=== PATIENT | female | born 1940 | race Hispanic/Latino ===

== ENCOUNTER 2020-10-31 00:19 | Emergency (ER) | payer MEDICARE ==
--- NOTE | 2020-10-31 00:50 | Emergency Department Report ---
ED Chest Pain HPI - General Chief Complaint: Chest Pain Stated Complaint: CHEST PAIN FROM FALL Time Seen by Provider: 10/31/20 00:30 Source: patient, EMS Mode of arrival: Stretcher Limitations: No Limitations - History of Present Illness Initial Comments: Chief complaint: "I am not having angina. I have pain when I move or talk. My heart skipping beats." HPI: This is a 80-year-old female with history of hypertension, prediabetes, angina who presents with chest pressure for 1 week. She noticed chest pressure after falling. Pain is persistent worse with movement, coughing or palpation. En route to the hospital she has had palpitations. She denies fever, cough, shortness of breath, abdominal pain, vomiting. She does not take any medications. She does have a primary physician. MD Complaint: chest pain -: Gradual, week(s) (1 week ago) Onset: during rest Pain Location: left chest Pain Radiation: none Severity: mild Quality: pressure Consistency: constant Improves With: nothing Worsens With: palpation, movement Treatments Prior to Arrival: other (EMS transfer) - Related Data Previous Rx's Medication Instructions Recorded Last Taken Type HYDROcodone/APAP 5-325 [[place] 1 each PO Q6H PRN #10 tablet 10/31/20 Unknown Rx 5/325] Ibuprofen [Motrin 400 MG tab] 400 mg PO Q8H PRN #10 tablet 10/31/20 Unknown Rx Valsartan [Diovan] 80 mg PO DAILY #90 tablet 10/31/20 Unknown Rx Allergies Allergy/AdvReac Type Severity Reaction Status Date / Time Unable to Assess Allergy Verified 10/31/20 01:05 Heart Score - HEART Score History: Slightly suspicious EKG: Non-specific Age: > 65 Risk factors: No known risk factors Troponin: < normal limit HEART Score: 3 - EKG Read Time Time EKG Completed: : EKG Read Time: :22 ED Review of Systems ROS: Stated complaint: CHEST PAIN FROM FALL Other details as noted in HPI Comment: All other systems reviewed and negative Constitutional: denies: fever, malaise Respiratory: denies: cough, shortness of breath Cardiovascular: chest pain, palpitations Gastrointestinal: denies: abdominal pain, nausea, vomiting ED Past Medical Hx - Past Medical History Previous Medical History?: Yes Hx Hypertension: Yes Hx Diabetes: Yes - Surgical History Past Surgical History?: No - Social History Smoking Status: Never Smoker Substance Use Type: Alcohol - Medications Home Medications: Home Medications Medication Instructions Recorded Confirmed Last Taken Type HYDROcodone/APAP 5-325 [[place] 1 each PO Q6H PRN #10 tablet 10/31/20 Unknown Rx 5/325] Ibuprofen [Motrin 400 MG tab] 400 mg PO Q8H PRN #10 tablet 10/31/20 Unknown Rx Valsartan [Diovan] 80 mg PO DAILY #90 tablet 10/31/20 Unknown Rx ED Physical Exam - General Limitations: No Limitations General appearance: alert, in no apparent distress - Head Head exam: Present: atraumatic, normocephalic - Eye Eye exam: Present: normal appearance - ENT ENT exam: Present: mucous membranes moist - Neck Neck exam: Present: normal inspection, full ROM - Respiratory Respiratory exam: Present: normal lung sounds bilaterally. Absent: respiratory distress, wheezes, rales, rhonchi - Cardiovascular Cardiovascular Exam: Present: regular rate, normal rhythm, normal heart sounds. Absent: systolic murmur, diastolic murmur, rubs, gallop - GI/Abdominal GI/Abdominal exam: Present: soft, normal bowel sounds. Absent: distended, tenderness, guarding, rebound - Extremities Exam Extremities exam: Present: normal inspection - Neurological Exam Neurological exam: Present: alert, oriented X3 - Psychiatric Psychiatric exam: Present: normal affect, normal mood - Skin Skin exam: Present: warm, dry, intact, normal color. Absent: rash ED Course Vital Signs 10/31/20 00:30 Temperature 98.3 F Pulse Rate 74 Respiratory 15 Rate Blood Pressure 190/80 [Left] O2 Sat by Pulse 95 Oximetry ED Medical Decision Making - Lab Data Result diagrams: 10/31/20 00:38 10/31/20 00:38 - EKG Data -: EKG Interpreted by De EKG shows normal: sinus rhythm, axis Rate: normal - EKG Data Interpretation: nonspecific ST-T wave amita, LVH 10/31/20 01:34 EKG obtained 0122 Rate 70 bpm normal sinus rhythm normal axis normal intervals positive LVH with repolarization male no ST elevation - Radiology Data Patient: DOLORES BUENO MR#: [id number] : 1940 Acct:[id number] Age/Sex: 80 / F ADM Date: 10/31/20 Loc: ED Attending Dr: Ordering Physician: Regla Moreno MD Date of Service: 10/31/20 Procedure(s): XR ribs UNI w PA chest 3+V LT Accession Number(s): [id number] cc: Regla Thomason MD Fluoro Time In Minutes: . XR ribs UNI w PA chest 3+V LT INDICATION / CLINICAL INFORMATION: chest pain fall COMPARISON: None available. FINDINGS: SUPPORT DEVICES: None. HEART / MEDIASTINUM: No significant abnormality. LUNGS / PLEURA: Lungs are clear. Costophrenic sulci are sharp. No pneumothorax. RIBS: No acute rib fracture identified. IMPRESSION: 1. No acute rib fracture. Signer Name: Ariel Bynum MD Signed: 10/31/2020 1:26 AM Workstation Name: [id number] Transcribed By: RAMU Dictated By: Ariel Bynum MD Electronically Authenticated By: Ariel Bynum MD Signed Date/Time: 10/31/20125 DD/ 4 TD/TT: - Medical Decision Making 1. Musculoskeletal chest pain status post fall: no indication of ACS. No evidence of rib fracture. Patient given referral to party plan demonstrator and outpatient medicine physician. Referral request faxed to [facility]. Prescriptions ibuprofen [place] 2. Hypertensive urgency: Patient does not take any medication. Prescribed valsartan. Critical care attestation.: If time is entered above; I have spent that time in minutes in the direct care of this critically ill patient, excluding procedure time. ED Disposition Clinical Impression: Stable angina, Chest wall contusion, Hypertensive urgency Disposition: - TO HOME OR SELFCARE Is pt being admited?: No Does the pt Need Aspirin: No Condition: Stable Instructions: Angina, [id number], Rib Contusion, Managing Your Hypertension Prescriptions: Valsartan [Diovan] 80 mg PO DAILY #90 tablet Ibuprofen [Motrin 400 MG tab] 400 mg PO Q8H PRN #10 tablet PRN Reason: Pain , Severe (7-10) HYDROcodone/APAP 5-325 [[place] 5/325] 1 each PO Q6H PRN #10 tablet PRN Reason: Pain Referrals: CHELA PETER MD [Staff Physician] - 3-5 Days ITALIA GATES MD [Staff Physician] - 3-5 Days
[2020-10-31 01:02] LABS: Basophils % (Auto) 0.5 % (0.0-1.8); Eosinophils # (Auto) 0.3 K/mm3 (0.0-0.4); Eosinophils % (Auto) 2.9 % (0.0-4.3); Hematocrit 39.9 % (30.3-42.9); Hemoglobin 13.3 gm/dl (10.1-14.3); Lymphocytes % (Auto) 21.5 % (13.4-35.0); Mean Corpuscular HGB Conc 33 % (30-34); Mean Corpuscular Volume 90 fl (79-97); Monocytes # (Auto) 0.9 K/mm3 (0.0-0.8); Monocytes % (Auto) 9.9 % (0.0-7.3); Platelet Count 371 K/mm3 (140-440); Red Blood Count 4.45 M/mm3 (3.65-5.03); Red Cell Distribution Width 14.3 % (13.2-15.2)
[2020-10-31 01:20] LABS: BUN/Creatinine Ratio 27; Blood Urea Nitrogen 16 mg/dL (7-17); Calcium 8.5 mg/dL (8.4-10.2); Hemolysis Index 3
--- NOTE | 2020-10-31 01:31 | XRay Report ---
. XR ribs UNI w PA chest 3+V LT INDICATION / CLINICAL INFORMATION: chest pain fall COMPARISON: None available. FINDINGS: SUPPORT DEVICES: None. HEART / MEDIASTINUM: No significant abnormality. LUNGS / PLEURA: Lungs are clear. Costophrenic sulci are sharp. No pneumothorax. RIBS: No acute rib fracture identified. IMPRESSION: 1. No acute rib fracture. Signer Name: Ariel Bynum MD Signed: 10/31/2020 1:26 AM Workstation Name: [id number]
[2020-10-31] MEDS ORDERED: HYDROcodone/ACETAMINOPHEN 5-325 MG TAB PO ONE (01:43)
[2020-10-31] MEDS ORDERED: IBUPROFEN 800 MG TAB PO ONE (01:43)
[2020-10-31 05:57] VITALS: BP 163/65
--- NOTE | 2020-10-31 18:04 | Electrocardiograph Report ---
[facility] Test Date: 2020-10-31 Test Time: 01:22:23 Pat Name: DOLORES BUENO Department: Room: Gender: F Telegrapher Agent: ABIGAIL : 1940 Requested By: SYMONE CANTU Order Number: [id number] Reading MD: Jj Avila Measurements Intervals [place] Rate: 70 P: -1 MD: 136 QRS: 1 QRSD: 97 T: 166 QT: 376 QTc: 407 Interpretive Statements Sinus rhythm Probable LVH with secondary repol abnrm Anterior Q waves, possibly due to LVH No previous ECG available for comparison Electronically Signed On 10-31-2020 18:03:44 EDT by Jj Avila
== END 2020-10-31 07:15 | disposition home or self-care (01) ==
LOC: ED 00:19
DX: S20.219A Contusion of unspecified front wall of thorax, initial encounter (principal); I20.8 Other forms of angina pectoris; I16.0 Hypertensive urgency; E11.9 Type 2 diabetes mellitus without complications; Z79.1 Long term (current) use of non-steroidal anti-inflammatories (NSAID); Z79.899 Other long term (current) drug therapy; X58.XXXA Exposure to other specified factors, initial encounter; Y93.89 Activity, other specified; Y92.89 Other specified places as the place of occurrence of the external cause; Y99.8 Other external cause status
CPT/HCPCS: 36415; 80048; 83880; 84484; 85025; 93005

== ENCOUNTER 2021-01-04 12:17 | Inpatient (IN) | payer MEDICARE ==
[2021-01-04] MEDS ORDERED: IPRATROPIUM 0.02% NEBU 2.5 ML IH ONE (12:47)
[2021-01-04] MEDS ORDERED: ALBUTEROL 2.5 MG/3 ML NEBU IH ONE (12:47)
[2021-01-04] MEDS ORDERED: SODIUM CHLORIDE 0.9% 500 ML 500 ML IV ONE (12:50)
--- NOTE | 2021-01-04 12:54 | Emergency Department Report ---
HPI - General Chief Complaint: Dyspnea/Respdistress Time Seen by Provider: 01/04/21 12:31 - HPI HPI: Room 20 The patient is a 80-year-old female present with a chief complaint of shortness of breath. Patient states she developed shortness of breath last night. Patient denies chest pain fever or cough. The patient states she was diagnosed with a DVT in her groin approximately 1 month ago but stopped taking her Eliquis because of the side effects. Patient states she has not received vaccination against Covid. Patient also complains of abdominal pain x2 days ED Past Medical Hx - Past Medical History Previous Medical History?: Yes Hx Hypertension: Yes Hx Congestive Heart Failure: Yes Hx Diabetes: Yes Hx Deep Vein Thrombosis: Yes Hx COPD: Yes - Surgical History Past Surgical History?: No - Family History Family history: no significant - Social History Smoking Status: Former Smoker Substance Use Type: None - Medications Home Medications: Home Medications Medication Instructions Recorded Confirmed Last Taken Type HYDROcodone/APAP 5-325 [[place] 1 each PO Q6H PRN #10 tablet 10/31/20 Unknown Rx 5/325] Ibuprofen [Motrin 400 MG tab] 400 mg PO Q8H PRN #10 tablet 10/31/20 Unknown Rx Valsartan [Diovan] 80 mg PO DAILY #90 tablet 10/31/20 Unknown Rx ED Review of Systems ROS: Stated complaint: EVGENY Other details as noted in HPI Constitutional: denies: fever Eyes: denies: eye pain ENT: denies: throat pain Respiratory: shortness of breath. denies: cough Cardiovascular: denies: chest pain Endocrine: no symptoms reported Gastrointestinal: denies: abdominal pain Musculoskeletal: denies: back pain Neurological: denies: headache Physical Exam - Physical Exam Vital Signs: Vital Signs 01/04/21 12:37 Pulse Rate 113 H Respiratory 26 H Rate Blood Pressure 92/68 O2 Sat by Pulse 94 Oximetry Physical Exam: GENERAL: The patient is well-developed well-nourished female lying on stretcher appearing fatigued. [] HEENT: Normocephalic. Atraumatic. Extraocular motions are intact. Patient has moist mucous membranes. NECK: Supple. Trachea midline CHEST/LUNGS: Increased work of breathing. No wheezing auscultated. There is no respiratory distress noted. HEART/CARDIOVASCULAR: Regular. There is no tachycardia. There is no gallop rub or murmur. ABDOMEN: Abdomen is soft, with diffuse tenderness to palpation. Patient has normal bowel sounds. There is no abdominal distention. SKIN: There is no rash. There is trace bilateral lower extremity pitting edema. There is no diaphoresis. NEURO: The patient is awake, alert, and oriented. The patient is cooperative. The patient has no focal neurologic deficits. The patient has normal speech MUSCULOSKELETAL: There is no evidence of acute injury. ED Course Vital Signs 01/04/21 12:37 Pulse Rate 113 H Respiratory 26 H Rate Blood Pressure 92/68 O2 Sat by Pulse 94 Oximetry - Consultations Consultation #1: 01/04/21 13:12 Surgery paged 01/04/21 13:[address] Sweet ED Medical Decision Making - Lab Data Result diagrams: 01/04/21 12:57 01/04/21 12:57 Laboratory Tests 01/04/21 01/04/21 01/04/21 12:57 12:57 12:57 WBC 16.5 H RBC 5.01 Hgb 14.8 H Hct 45.2 H MCV 90 MCH 30 MCHC 33 RDW 14.8 Plt Count 521 H Seg Neutrophils % Food Processing Scientist PT 16.0 H INR 1.22 H APTT 32.6 D-Dimer 2114.69 H Sodium 116 L* Potassium 4.1 Chloride 78.9 L Carbon Dioxide 14 L Anion Gap 28 BUN 43 H Creatinine 1.6 H Estimated GFR 31 BUN/Creatinine Ratio 27 Glucose 397 H Calcium 9.2 Total Creatine Kinase CK-MB (CK-2) CK-MB (CK-2) Rel Index Troponin T NT-Pro-B Natriuret Pep 01/04/21 01/04/21 12:57 12:57 WBC RBC Hgb Hct MCV MCH MCHC RDW Plt Count Seg Neutrophils % PT INR APTT D-Dimer Sodium Potassium Chloride Carbon Dioxide Anion Gap BUN Creatinine Estimated GFR BUN/Creatinine Ratio Glucose Calcium Total Creatine Kinase 160 H CK-MB (CK-2) 4.3 H CK-MB (CK-2) Rel Index 2.6 Troponin T 0.019 NT-Pro-B Natriuret Pep 7015 H - Radiology Data Radiology results: report reviewed (Chest x-ray, CT abdomen pelvis), image reviewed (Chest x-ray, CT abdomen pelvis) interpreted by me: Chest x-ray-free air under the right hemidiaphragm visualized. No focal infiltrates, no pneumothorax [facility] [address] [place] [address] Cat Scan Report Signed Patient: DOLORES BUENO MR#: [id number] : 1940 Acct:[id number] Age/Sex: 80 / F ADM Date: 01/04/21 Loc: ED Attending Dr: Ordering Physician: ANGELA US MD Date of Service: 01/04/21 Procedure(s): CT abdomen pelvis w con Accession Number(s): [id number] cc: ANGELA SUMMERS MD CT ABDOMEN AND PELVIS WITH CONTRAST HISTORY: Diffuse pain. Free air seen on chest x-ray DR. US-- wanted scan done before labs came back. OMNI 300 100ML . COMPARISON: Chest x-ray from earlier today TECHNIQUE: CT images of the abdomen and pelvis were obtained following administration of intravenous contrast. All CT scans at this location are performed using CT dose reduction for ALARA by means of automated exposure control. CONTRAST: 100 ml of intravenous contrast administered. FINDINGS: Lungs/bones: There is mild bibasilar atelectasis. Otherwise clear lungs. Degenerative changes are present throughout the spine and pelvis with nothing acute. Abdomen/pelvis: There is moderate generalized soft tissue swelling along the stomach extending to the duodenal bulb with abnormal mucosal enhancement and fluid-filled appearance. There appears to be a small defect in the region of the distal antrum/duodenal bulb (for example see images 93-95 of series #2). There is moderate volume pneumoperitoneum and trace ascites associated with this finding. The more distal small bowel is dilated and fluid-filled and there are segments of gross abnormal enhancement, as well. The liver, gallbladder, spleen, pancreas, kidneys, and right adrenal gland appear unremarkable. There is mild left adrenal thickening. There is gas within the wall of the urinary bladder but there is no obvious bladder perforation or other abnormality. Reproductive organs are unremarkable. There are occasional colonic diverticula but no obvious laboratory change. IMPRESSION: 1. Bowel perforation likely from either the distal stomach or duodenal bulb with moderate volume pneumoperitoneum and trace ascites. 2. Abnormal appearance of the more distal small bowel is considerable wall thickening. If the patient is hypertensive, shock bowel could have this appearance. 3. Gas within the urinary bladder wall is most commonly seen with emphysematous cystitis. Correlate with history, UA, and exam findings. CRITICAL RESULT: Time of Discovery (CONCRETE MIXER OPERATOR/CDT): 1:18 pm Time of Communication (CONCRETE MIXER OPERATOR/CDT): 1:21 pm Licensed Practitioner Receiving Report: Dr. Us Read-Back Performed: Yes. === Signer Name: Adam Campuzano MD Signed: 01/04/2021 2:24 PM Workstation Name: [email or web address] Transcribed By: JW Dictated By: Adam Campuzano MD Electronically Authenticated By: Adam Campuzano MD Signed Date/Time: 01/04/211423 DD/ 14 TD/TT: Print Cancel [facility] [address] [place] [address] XRay Report Signed Patient: DOLORES BUENO MR#: [id number] : [birth year] Acct:[id number] Age/Sex: 80 / F ADM Date: 01/04/21 Loc: ED Attending Dr: Ordering Physician: ANGELA US MD Date of Service: 01/04/21 Procedure(s): XR chest 1V ap Accession Number(s): [id number] cc: ANGELA US MD Fluoro Time In Minutes: CHEST 1 VIEW 01/04/2021 1:00 PM INDICATION / CLINICAL INFORMATION: Chest pain. COMPARISON: 10/31/2020 FINDINGS: SUPPORT DEVICES: None. HEART / MEDIASTINUM: No significant abnormality. LUNGS / PLEURA: No significant pulmonary or pleural abnormality. No pneumothorax. ADDITIONAL FINDINGS: There is incidental note of intraperitoneal air. IMPRESSION: 1. Intraperitoneal air. CT of the abdomen and pelvis is recommended for further evaluation. CRITICAL RESULT Time of Discovery (CONCRETE MIXER OPERATOR/CDT): 1209 Time of Communication (CONCRETE MIXER OPERATOR/CDT): 1211 Licensed Practitioner Receiving Report: Dr. Us Read-Back Performed: Yes. ========= Signer Name: Mitch Crowley DO Signed: 01/04/2021 1:11 PM Workstation Name: [id number] Transcribed By: DILEEP Dictated By: MITCH CROWLEY DO Electronically Authenticated By: MITCH CROWLEY DO Signed Date/Time: 01/04/21 1311 DD/ 130 TD/TT: Print Cancel [facility] [address] [place] [address] Nuclear Medicine Report Signed Patient: DOLORES BUENO MR#: [id number] : 1940 Acct:[id number] Age/Sex: 80 / F ADM Date: 01/04/21 Loc: ED Attending Dr: Ordering Physician: ANGELA US MD Date of Service: 01/04/21 Procedure(s): NM perfusion only lung scan Accession Number(s): [id number] cc: ANGELA US MD NUCLEAR MEDICINE PERFUSION LUNG SCAN INDICATION / CLINICAL INFORMATION: Shortness of breath. TECHNIQUE: 5.1 mCi of Tc-99m MAA were given by IV. COMPARISON: Chest radiograph dated from earlier in the day. FINDINGS: PERFUSION: There is a perfusion defect noted involving the posterior lateral aspect of the left lung where there is a small left pleural effusion. ADDITIONAL FINDINGS: None. IMPRESSION: 1. Intermediate probability for pulmonary embolism. CT pulmonary angiogram may be beneficial for further evaluation. Signer Name: Mitch Crowley DO Signed: 01/04/2021 2:58 PM Workstation Name: [id number] Transcribed By: DILEEP Dictated By: MITCH CROWLEY DO Electronically Authenticated By: MITCH CROWLEY DO Signed Date/Time: 01/04/21 1458 DD/ 1453 TD/TT: Print Cancel - Differential Diagnosis PE, COPD exacerbation, pneumonia, COVID-19 Critical care attestation.: If time is entered above; I have spent that time in minutes in the direct care o f this critically ill patient, excluding procedure time. ED Disposition Clinical Impression: Bowel perforation, Hyponatremia Disposition: ADMITTED INPATIENT Is pt being admited?: Yes Does the pt Need Aspirin: No Condition: Serious Referrals: PRIMARY CARE, [Primary Care Provider] - 3-5 Days Time of Disposition: 15:18 (Hospitalist notified (Dr. Mcleod))
--- NOTE | 2021-01-04 13:15 | XRay Report ---
CHEST 1 VIEW 01/04/2021 1:00 PM INDICATION / CLINICAL INFORMATION: Chest pain. COMPARISON: 10/31/2020 FINDINGS: SUPPORT DEVICES: None. HEART / MEDIASTINUM: No significant abnormality. LUNGS / PLEURA: No significant pulmonary or pleural abnormality. No pneumothorax. ADDITIONAL FINDINGS: There is incidental note of intraperitoneal air. IMPRESSION: 1. Intraperitoneal air. CT of the abdomen and pelvis is recommended for further evaluation. CRITICAL RESULT Time of Discovery (SOUND ENGINEER AUDIO CONTROL/CDT): 1209 Time of Communication (SOUND ENGINEER AUDIO CONTROL/CDT): 1211 Licensed Practitioner Receiving Report: Dr. Saenz Read-Back Performed: Yes. Signer Name: Mitch Hendrix DO Signed: 01/04/2021 1:11 PM Workstation Name: [id number]
[2021-01-04 13:16] LABS: Hematocrit 45.2 % (30.3-42.9); Hemoglobin 14.8 gm/dl (10.1-14.3); Mean Corpuscular HGB Conc 33 % (30-34); Mean Corpuscular Volume 90 fl (79-97); Platelet Count 521 K/mm3 (140-440); Red Blood Count 5.01 M/mm3 (3.65-5.03); Red Cell Distribution Width 14.8 % (13.2-15.2)
[2021-01-04 13:41] LABS: Calcium 9.2 mg/dL (8.4-10.2); Creatine Kinase MB 4.3 ng/mL (0.0-4.0)
[2021-01-04] MEDS ORDERED: SODIUM CHLORIDE 0.9% 1000 ML 1,000 ML IV ONE ×2 (13:46→14:44)
[2021-01-04] MEDS ORDERED: PIPERACILLIN/TAZOBACTAM 3.375 3.375 GM/50 ML BAG IV ONE (14:05)
[2021-01-04 14:09] LABS: INR 1.22 (0.87-1.13)
[2021-01-04 14:10] LABS: Partial Thromboplastin Time 32.6 Sec. (24.2-36.6)
--- NOTE | 2021-01-04 14:28 | Cat Scan Report ---
CT ABDOMEN AND PELVIS WITH CONTRAST HISTORY: Diffuse pain. Free air seen on chest x-ray DR. SAENZ-- wanted scan done before labs came nelly k. OMNI 300 100ML . COMPARISON: Chest x-ray from earlier today TECHNIQUE: CT images of the abdomen and pelvis were obtained following administration of intravenous contrast. All CT scans at this location are performed using CT dose reduction for ALARA by means of automated exposure control. CONTRAST: 100 ml of intravenous contrast administered. FINDINGS: Lungs/bones: There is mild bibasilar atelectasis. Otherwise clear lungs. Degenerative changes are pr esent throughout the spine and pelvis with nothing acute. Abdomen/pelvis: There is moderate generalized soft tissue swelling along the stomach extending to th e duodenal bulb with abnormal mucosal enhancement and fluid-filled appearance. There appears to be a small defect in the region of the distal antrum/duodenal bulb (for example see images 93-95 of series #2). There is moderate volume pneumoperitoneum and trace ascites associated with this finding. The m ore distal small bowel is dilated and fluid-filled and there are segments of gross abnormal enhanceme nt, as well. The liver, gallbladder, spleen, pancreas, kidneys, and right adrenal gland appear unremarkable. There is mild left adrenal thickening. There is gas within the wall of the urinary bladder but there is no obvious bladder perforation or ot her abnormality. Reproductive organs are unremarkable. There are occasional colonic diverticula but n o obvious laboratory change. IMPRESSION: 1. Bowel perforation likely from either the distal stomach or duodenal bulb with moderate volume pneu moperitoneum and trace ascites. 2. Abnormal appearance of the more distal small bowel is considerable wall thickening. If the patient is hypertensive, shock bowel could have this appearance. 3. Gas within the urinary bladder wall is most commonly seen with emphysematous cystitis. Correlate w ith history, UA, and exam findings. CRITICAL RESULT: Time of Discovery (ABSORPTION AND ADSORPTION ENGINEER/CDT): 1:18 pm Time of Communication (ABSORPTION AND ADSORPTION ENGINEER/CDT): 1:21 pm Licensed Practitioner Receiving Report: Dr. Saenz Read-Back Performed: Yes. Signer Name: Adam Campuzano MD Signed: 01/04/2021 2:24 PM Workstation Name: [id number]
[2021-01-04] MEDS ORDERED: SODIUM CHLORIDE 0.9% 1000 ML 1,000 ML IV SCH (14:45)
--- NOTE | 2021-01-04 15:03 | Nuclear Medicine Report ---
NUCLEAR MEDICINE PERFUSION LUNG SCAN INDICATION / CLINICAL INFORMATION: Shortness of breath. TECHNIQUE: 5.1 mCi of Tc-99m MAA were given by IV. COMPARISON: Chest radiograph dated from earlier in the day. FINDINGS: PERFUSION: There is a perfusion defect noted involving the posterior lateral aspect of the left lung where there is a small left pleural effusion. ADDITIONAL FINDINGS: None. IMPRESSION: 1. Intermediate probability for pulmonary embolism. CT pulmonary angiogram may be beneficial for furt her evaluation. Signer Name: Mitch Hendrix DO Signed: 01/04/2021 2:58 PM Workstation Name: [email or web address]
--- NOTE | 2021-01-04 15:07 | Anesthesia Consultation ---
Anesthesia Consult and Med Hx Date of service: 01/04/21 - Airway Anesthetic Teeth Evaluation: Dentures (Upper) ROM Head & Neck: Adequate Mental/Hyoid Distance: Adequate Mallampati Class: Class II Intubation Access Assessment: Probably Good - Pulmonary Exam CTA: Yes - Cardiac Exam Cardiac Exam: RRR - Pre-Operative Health Status ASA Pre-Surgery Classification: ASA4, Emergency Proposed Anesthetic Plan: General - Pulmonary Hx Smoking: Yes (Quit >10 years ago) Hx Asthma: Yes (No meds) COPD: Yes Hx Sleep Apnea: Yes (No CPAP) - Cardiovascular System Hx Hypertension: Yes (CHF) Hx Angina: Yes (None within last few months) - Central Nervous System 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 Self discontinued Elliquis 10 days ago due to unwanted side effects.
[2021-01-04] MEDS ORDERED: LACTATED RINGERS 1,000 ML ONE (15:14)
--- NOTE | 2021-01-04 15:14 | Anesthesia Day of Surgery ---
Anesthesia Day of Surgery - Day of Surgery Patient Examined: Yes Patient H&P Reviewed: Yes Patient is NPO: Yes
[2021-01-04] MEDS ORDERED: fentaNYL 100 MCG/2 ML INJ ONE (15:16)
[2021-01-04] MEDS ORDERED: MIDAZOLAM 2 MG/2 ML INJ ONE (15:16)
[2021-01-04] MEDS ORDERED: propofoL 200 MG/20 ML VIAL IV ONE (15:16)
--- NOTE | 2021-01-04 15:32 | Consultation ---
History of Present Illness Consult date: 01/04/21 Reason for consult: abdominal pain Chief complaint: abd pain - History of present illness History of present illness: 80-year-old female with a past medical history of CHF, diabetes, peptic ulcer disease who presents to the emergency room with 3 days of worsening abdominal pain. She states that she came to the emergency room because she fell however she has been having abdominal pain specifically located in the epigastric area that radiates to the rest of her abdomen. The pain is spasm-like and severe. She has never had pain like this in the past. The patient states that she was diagnosed with peptic ulcer disease in the 1970s is and has not been taking any medication for this. She has been taking ibuprofen for pain. No fevers or chills, nausea, vomiting. She does complain of mild shortness of breath. No chest pain. She was recently diagnosed with a left lower extremity DVT for whic h she was started on Eliquis. The patient states that she has not taken Eliquis for the last 7 to 8 days. She also states that she has not urinated. Patient states that she moved here from [place] and has no family. She lives in a halfway. She does not take any medication for chronic medical issues and does not have a primary care physician. Work-up in the emergency room including a chest x-ray and CT of the abdomen pelvis revealed pneumoperitoneum. Surgery is consulted for evaluation. Past History Past Medical History: diabetes, GERD, heart failure Past Surgical History: No surgical history Social history: other (Lives in a halfway. No family.) Family history: no significant family history Medications and Allergies Allergies Allergy/AdvReac Type Severity Reaction Status Date / Time Unable to Assess Allergy Verified 10/31/20 01:05 Home Medications Medication Instructions Recorded Confirmed Last Taken Type HYDROcodone/APAP 5-325 [[place] 1 each PO Q6H PRN #10 tablet 10/31/20 Unknown Rx 5/325] Ibuprofen [Motrin 400 MG tab] 400 mg PO Q8H PRN #10 tablet 10/31/20 Unknown Rx Valsartan [Diovan] 80 mg PO DAILY #90 tablet 10/31/20 Unknown Rx Active Meds: Active Medications Sodium Chloride (Nacl 0.9% 1000 Ml) 1,000 mls @ 999 mls/hr IV BOLUS ONE Stop: 01/04/21 15:44 Sodium Chloride (Nacl 0.9% 1000 Ml) 1,000 mls @ 125 mls/hr IV DIRECT KISHOR Review of Systems All systems: negative (10 point ROS performed and negative except for that listed in HPI) Exam Vital Signs Pulse Resp BP Pulse Ox 123 H 23 92/68 92 01/04/21 12:35 01/04/21 12:35 01/04/21 12:35 01/04/21 12:35 Narrative exam: Gen.: Awake, alert, oriented x3. No apparent distress. Poor hygiene. ENT: Trachea midline. No lymphadenopathy. No scleral icterus or conjunctival pallor. Poor dentition. CV: S1, S2 present Respiratory: No audible wheezes Abdomen: Soft, mildly distended, diffuse tenderness to palpation. Positive rebound and guarding. No rigidity. Extremities: Bilateral lower extremity mild edema Results - Labs 01/04/21 12:57 01/04/21 12:57 Abnormal lab results 01/04/21 01/04/21 01/04/21 Range/Units 12:57 12:57 12:57 WBC 16.5 H (4.5-11.0) K/mm3 Hgb 14.8 H (10.1-14.3) gm/dl Hct 45.2 H (30.3-42.9) % Plt Count 521 H (140-440) K/mm3 PT 16.0 H (12.2-14.9) Sec. INR 1.22 H (0.87-1.13) D-Dimer 2114.69 H (0-234) ng/mlDDU Sodium 116 L* (137-145) mmol/L Chloride 78.9 L (98-107) mmol/L Carbon Dioxide 14 L (22-30) mmol/L BUN 43 H (7-17) mg/dL Creatinine 1.6 H (0.6-1.2) mg/dL Glucose 397 H (65-100) mg/dL Total Creatine Kinase (30-135) units/L CK-MB (CK-2) (0.0-4.0) ng/mL NT-Pro-B Natriuret Pep (0-900) pg/mL 01/04/21 Range/Units 12:57 WBC (4.5-11.0) K/mm3 Hgb (10.1-14.3) gm/dl Hct (30.3-42.9) % Plt Count (140-440) K/mm3 PT (12.2-14.9) Sec. INR (0.87-1.13) D-Dimer (0-234) ng/mlDDU Sodium (137-145) mmol/L Chloride (98-107) mmol/L Carbon Dioxide (22-30) mmol/L BUN (7-17) mg/dL Creatinine (0.6-1.2) mg/dL Glucose (65-100) mg/dL Total Creatine Kinase 160 H (30-135) units/L CK-MB (CK-2) 4.3 H (0.0-4.0) ng/mL NT-Pro-B Natriuret Pep 7015 H (0-900) pg/mL Diabetes panel 01/04/21 Range/Units 12:57 Sodium 116 L* (137-145) mmol/L Potassium 4.1 (3.6-5.0) mmol/L Chloride 78.9 L (98-107) mmol/L Carbon Dioxide 14 L (22-30) mmol/L BUN 43 H (7-17) mg/dL Creatinine 1.6 H (0.6-1.2) mg/dL Glucose 397 H (65-100) mg/dL Calcium 9.2 (8.4-10.2) mg/dL Calcium panel 01/04/21 Range/Units 12:57 Calcium 9.2 (8.4-10.2) mg/dL Pituitary panel 01/04/21 Range/Units 12:57 Sodium 116 L* (137-145) mmol/L Potassium 4.1 (3.6-5.0) mmol/L Chloride 78.9 L (98-107) mmol/L Carbon Dioxide 14 L (22-30) mmol/L BUN 43 H (7-17) mg/dL Creatinine 1.6 H (0.6-1.2) mg/dL Glucose 397 H (65-100) mg/dL Calcium 9.2 (8.4-10.2) mg/dL Adrenal panel 01/04/21 Range/Units 12:57 Sodium 116 L* (137-145) mmol/L Potassium 4.1 (3.6-5.0) mmol/L Chloride 78.9 L (98-107) mmol/L Carbon Dioxide 14 L (22-30) mmol/L BUN 43 H (7-17) mg/dL Creatinine 1.6 H (0.6-1.2) mg/dL Glucose 397 H (65-100) mg/dL Calcium 9.2 (8.4-10.2) mg/dL - Imaging Chest x-ray: report reviewed, image reviewed CT scan - abdomen: report reviewed, image reviewed CT scan - pelvis: report reviewed, image reviewed Assessment and Plan 80-year-old female with 1. pneumoperitoneum 2. sepsis 2/2 #1 Plan: Admit to hospitalist service 1. NPO, strict 2. aggressive IVF hydration 3. IV abx 4. insert mckinney for strict I/Os 5. recommend echo 6. type and screen stat 7. DVT ppx 8. prn pain control. NO NSAIDS 9. PPI gtt 10. blood and urine cx 11. CT and lab findings reviewed. Patient with pneumoperitoneum likely secondary to gastric/duo perf. Discussed this with patient in detail and explained recommendation for emergent surgery. All risks, benefits, alternatives to surgery discussed and questions answered. Explained to the patient that she is high risk for surgery especially with her current laboratory findings and poorly controlled chronic medical issues. She understands and is agreeable to surgery. Consent obtained for exploratory laparotomy, possible bowel or gastric resection, possible colostomy. Discussed with Dr. Saenz Thank you for this consultation. Please call with any questions or concerns. Evaluation and treatment of this patient was during the time of the national and state emergency arising from COVID19 coronavirus pandemic. Treatment and procedures performed meet the current and available best practice and guidelines for patient during the COVID pandemic.
[2021-01-04] MEDS ORDERED: ALBUTEROL 2.5 MG/3 ML NEBU IH PRN (15:35)
[2021-01-04] MEDS ORDERED: oxyCODONE /ACETAMINOPHEN 5-325MG TAB PO PRN (15:35)
[2021-01-04] MEDS ORDERED: ACETAMINOPHEN 325 MG TAB PO PRN (15:35)
[2021-01-04] MEDS ORDERED: HYDROmorphone 1 MG/1 ML INJ IV PRN ×2 (15:35→18:16)
[2021-01-04] MEDS ORDERED: metroNIDAZOLE/NS 500 MG/100 ML 500 MG/100 ML BAG IV NR ×2 (16:00→16:28)
[2021-01-04] MEDS ORDERED: SODIUM CHLORIDE 0.9% 1000 ML 1,000 ML ONE ×2 (16:05→17:07)
[2021-01-04] MEDS ORDERED: INSULIN LISPRO 100 UNIT/ML SUB-Q ONE ×2 (16:26→18:00)
[2021-01-04] MEDS ORDERED: metroNIDAZOLE/NS 500 MG/100 ML 500 MG/100 ML BAG IV ONE (16:30)
[2021-01-04 16:48] LABS: Band Neutrophils # (Manual) 5.8 K/mm3; Myelocytes # (Manual) 0.2 K/mm3; Total Cells Counted 100
[2021-01-04 16:49] LABS: Platelet Estimate Consistent w Auto
[2021-01-04] MEDS ORDERED: LIDOCAINE MPF (2%) 20 MG/1 ML VIAL 5 ML ONE (17:00)
[2021-01-04] MEDS ORDERED: NEOSTIGMINE 10MG/10 ML INJ MDV ONE (17:00)
[2021-01-04] MEDS ORDERED: GLYCOPYRROLATE 0.4 MG/2 ML INJ ONE (17:00)
[2021-01-04] MEDS ORDERED: PHENYLEPHRINE/NS 1,000 MCG/10 ML SYRINGE (OR USE) IV ONE (17:01)
[2021-01-04] MEDS ORDERED: SODIUM CHLORIDE 0.9% IRR 1,000 ML BOTTLE IR ONE (17:10)
[2021-01-04] MEDS ORDERED: ONDANSETRON 4 MG/2 ML INJ ONE (17:17)
--- NOTE | 2021-01-04 17:51 | Operative Report ---
Operative Report Operative Report: Date of surgery: 01/04/2021 Preoperative diagnosis: Pneumoperitoneum Postoperative diagnosis: Pneumoperitoneum, perforated gastric ulcer Procedure: Exploratory laparotomy, peritoneal lavage, omental patch repair of perforated gastric ulcer Surgeon: Roman Sweet DO Chief Wheelage Clerk surgeon: MD Jose G Anesthesia: GETA Findings: 1 cm perforation, anterior, prepyloric with gross contamination of the abdomen with gastric contents. -IV fluids: 1 L -Urine output: 350 cc -NG tube output: 400 cc EBL: 25 cc Specimen: Biopsy of gastric ulcer Complications: None Disposition: Stable to PACU HPI and indication: Patient is a 80-year-old female with a past medical history of diabetes, peptic ulcer disease, left lower extremity DVT diagnosed 1 month ago who presented to the emergency room status post fall. The patient complained of shortness of breath and during the work-up a chest x-ray revealed pneumoperitoneum. Follow-up CT scan of the abdomen and pelvis revealed pneumoperitoneum, likely perforated gastric ulcer. It was recommended that the patient undergo emergent exploratory laparotomy. All risks, benefits, alternatives to surgery were discussed with the patient questions answered. Consent was obtained. Procedure in detail: Patient was identified in the hospital bed, taken back to the operating room, placed on the operating room table in supine position. After anesthesia was induced a Espinoza catheter was sterilely placed by the circulating nurse. The abdomen was prepped and draped in usual sterile fashion and a timeout was performed. A midline incision was made from this xiphoid and carried out around the umbilicus using a 10 blade. Dissection was then carried out through the subcutaneous tissue using electrocautery until the fascia was encountered. The fascia was incised with the Bovie until the posterior fascia was encountered. This was grasped between 2 hemostats and tented upwards. This was entered using Metzenbaum scissors. Upon entering the abdomen there was immediate drainage of greenish intraperitoneal fluid. The remainder of the fascia was opened over 2 gloved fingers in a cephalad and caudad direction using electrocautery with great care to avoid injury to underlying structures. The falciform was also ligated using electrocautery. There was a copious amount of green fluid in the abdomen, more concentrated in the upper abdomen. We performed a systematic evaluation of the abdomen to determine what the source of pneumoperitoneum. Immediately visible on examination of the stomach was a 1 cm prepyloric perforation in the anterior stomach. The edges were clean with mild induration. A biopsy of the ulceration was obtained for specimen. We also examined the small bowel from the ligament of Treitz to the terminal ileum an the bowel appeared grossly normal, viable, without injury. The colon was also examined and was unremarkable. At this point it was decided to repair the perforation with an omental patch. 4 full-thickness interrupted 3-0 silk stitches were placed at the site of the perforation. These were tied down and the tails used to secure a tongue of omentum over the area of perforation. The repair was satisfactory. We then proceeded to perform peritoneal lavage with greater than 4 L of warm saline. Towards the end of the lavage all of the irrigant was returning clear. A 19 [place] Edmundo drain was placed through the right abdomen and positioned over the repair. This was sutured to the skin using a 2-0 nylon drain stitch. The N G tube was palpated and was in the distal body of the stomach. This was secured by anesthesia. At this point we decided to close the abdomen.The fascia was closed using a running looped #1 PDS stitch. The subcutaneous tissue was irrigated and hemostasis ensured. The skin was approximated using skin nikhil. The skin was cleansed and dried. A cover site dressing was applied to the midline incision. A 4 x 4 gauze was applied around the drain and secured with a Tegaderm. The patient was stable throughout the procedure. At the end of the procedure all sharps, instruments, sponge counts were correct x2. The patient was awoken from anesthesia, extubated, taken to PACU in stable condition.
[2021-01-04] MEDS ORDERED: ONDANSETRON 4 MG/2 ML INJ IV PRN ×2 (18:16→20:27)
[2021-01-04] MEDS: HYDROmorphone 1 MG/1 ML INJ IV PRN ×2 (18:20→18:30)
[2021-01-04] MEDS ORDERED: DEXTROSE 50% IN WATER (25GM) 50 ML SYRINGE IV PRN (18:47)
[2021-01-04 18:49] LABS: Hematocrit 33.3 % (30.3-42.9); Hemoglobin 11.2 gm/dl (10.1-14.3); Mean Corpuscular HGB Conc 34 % (30-34); Mean Corpuscular Volume 92 fl (79-97); Platelet Count 316 K/mm3 (140-440); Red Blood Count 3.64 M/mm3 (3.65-5.03); Red Cell Distribution Width 14.7 % (13.2-15.2)
[2021-01-04 18:59] LABS: Albumin 2.2 g/dL (3.9-5); Calcium 6.4 mg/dL (8.4-10.2)
[2021-01-04] MEDS: PANTOPRAZOLE 80 MG in SODIUM CHLORIDE 0.9% 100 ML IV SCH (19:09)
--- NOTE | 2021-01-04 19:11 | History and Physical Report ---
History of Present Illness Date of admission: 01/04/21 15:39 Chief complaint: Im short of breath and my stomach hurts History of present illness: 80 YO Female with HTN, CHF, DM, COPD, DVT noncompliant with therapeutic anticoagulation with Eliquis, Obesity presents to ED for evaluation. Patient reports "I get short of breath and my stomach has been hurting". Patient states that she experienced shortness of breath overnight. Patient also reports abdominal pain over the past 2 days. Patient states that pain is 5/10, constant, worsened with palpation. EMS was notified and upon arrival the patient was found to be in distress and subsequently transported to [facility] for further care and evaluation of the aforementioned symptoms. The patient was seen and evaluated in the emergency department. All lab and imaging studies reviewed. CT scan of the abdomen and pelvis revealed perforated viscus. Surgery team consulted. Patient is pending surgical intervention as per surgical team. VQ scan reviewed and immediate probability of pulmonary embolus. Patient resumed on prophylactic anticoagulation postoperatively. Patient denies fever, chills, chest pain, palpitations, skin rash, recent ill contacts, known exposure to COVID-19. Patient has not received coronavirus vaccination. Patient admitted to ICU for postoperative care and evaluation. Past History Past Medical History: diabetes, GERD, heart failure Past Surgical History: No surgical history Social history: other (Lives in a longterm. No family.) Family history: no significant family history Medications and Allergies Allergies Allergy/AdvReac Type Severity Reaction Status Date / Time Unable to Assess Allergy Verified 10/31/20 01:05 Home Medications Medication Instructions Recorded Confirmed Last Taken Type HYDROcodone/APAP 5-325 [[place] 1 each PO Q6H PRN #10 tablet 10/31/20 Unknown Rx 5/325] Ibuprofen [Motrin 400 MG tab] 400 mg PO Q8H PRN #10 tablet 10/31/20 Unknown Rx Valsartan [Diovan] 80 mg PO DAILY #90 tablet 10/31/20 Unknown Rx Active Meds: Active Medications Albuterol (Albuterol 2.5 Mg/3 Ml Nebu) 2.5 mg IH Q3HRT PRN PRN Reason: Shortness Of Breath Dextrose (Dextrose 50% In Water (25gm) 50 Ml Syringe) 50 ml IV Q30MIN PRN; Protocol PRN Reason: Hypoglycemia Heparin Sodium (Porcine) (Heparin 5,000 Unit/1 Ml Vial) 5,000 unit SUB-Q Q8HR KISHOR Hydromorphone HCl (Hydromorphone 1 Mg/1 Ml Inj) 0.5 mg IV Q12H PRN PRN Reason: Pain , Severe (7-10) Hydromorphone HCl (Hydromorphone 1 Mg/1 Ml Inj) 0.25 mg IV Q10MIN PRN PRN Reason: Pain, Moderate (4-6) Stop: 01/05/21 18:15 Hydromorphone HCl (Hydromorphone 1 Mg/1 Ml Inj) 0.5 mg IV Q10MIN PRN PRN Reason: Pain , Severe (7-10) Stop: 01/05/21 18:15 Last Admin: 01/04/21 18:30 Dose: 0.5 mg Documented by: Sodium Chloride (Nacl 0.9% 1000 Ml) 1,000 mls @ 125 mls/hr IV DIRECT KISHOR Pantoprazole Sodium 80 mg/ (Sodium Chloride) 100 mls @ 10 mls/hr IV DIRECT KISHOR Last Admin: 01/04/21 19:09 Dose: 8 mg/hr, 10 mls/hr Documented by: Metronidazole (Flagyl 500 Mg/100 Ml) 500 mg in 100 mls @ 200 mls/hr IV PREOP NR; Protocol Stop: 01/04/21 23:29 Fluconazole (Diflucan/Ns 100 Mg/50 Ml) 100 mg in 50 mls @ 50 mls/hr IV Q24H KISHOR; Protocol Metronidazole (Flagyl 500 Mg/100 Ml) 500 mg in 100 mls @ 100 mls/hr IV Q8H KISHOR; Protocol Levofloxacin/Dextrose (Levaquin 250mg/50ml) 250 mg in 50 mls @ 50 mls/hr IV Q24H KISHOR; Protocol Insulin Human Regular (Insulin Regular, Human 100 Units/1 Ml) 0 units SUB-Q ACHS KISHOR; Protocol Morphine Sulfate (Morphine 2 Mg/1 Ml Inj) 2 mg IV Q4H PRN PRN Reason: Pain, Moderate (4-6) Morphine Sulfate (Morphine 4 Mg/1 Ml Inj) 4 mg IV Q4H PRN PRN Reason: Pain , Severe (7-10) Ondansetron HCl (Ondansetron 4 Mg/2 Ml Inj) 4 mg IV ONCE PRN PRN Reason: Nausea And Vomiting Sodium Chloride (Sodium Chloride 0.9% 10 Ml Flush Syringe) 10 ml IV BID KISHOR Sodium Chloride (Sodium Chloride 0.9% 10 Ml Flush Syringe) 10 ml IV PRN PRN PRN Reason: LINE FLUSH Review of Systems Constitutional: no weight loss, no weight gain, no fever, no chills Ears, nose, mouth and throat: no ear pain, no ear discharge, no tinnitis, no nose pain, no sinus pressure Breasts: no change in shape, no mass Cardiovascular: no chest pain, no rapid/irregular heart beat Respiratory: shortness of breath Gastrointestinal: abdominal pain, no nausea, no vomiting, no diarrhea, no change in bowel habits, no melena, no loss of appetite, no heartburn Genitourinary Female: no pelvic pain, no flank pain, no dysuria, no urinary frequency, no urgency Rectal: no pain, no incontinence, no bleeding Musculoskeletal: no neck stiffness, no neck pain, no arm numbness/tingling, no low back pain, no shooting leg pain, no leg numbness/tingling Integumentary: no rash, no pruritis, no sores, no wounds, no jaundice Neurological: no head injury, no transient paralysis, no paralysis, no weakness, no parathesias, no tingling, no seizures, no syncope Psychiatric: no anxiety, no change in sleep habits, no insomnia, no hypersomnia, no suicidal ideation Endocrine: no cold intolerance, no polyphagia, no excessive thirst, no polydipsia, no nocturia Hematologic/Lymphatic: no easy bruising, no easy bleeding, no lymphadenopathy, no lymphedema Allergic/Immunologic: no urticaria, no anaphylaxis Exam - Constitutional Vitals: Temp Pulse Resp BP Pulse Ox 97.1 F L 76 24 125/69 94 01/04/21 18:45 01/04/21 18:45 01/04/21 18:45 01/04/21 18:45 01/04/21 18:45 General appearance: Present: mild distress, obese - EENT Eyes: Present: PERRL ENT: hearing intact, clear oral mucosa - Neck Neck: Present: supple, normal ROM - Respiratory Respiratory effort: normal Respiratory: bilateral: CTA - Cardiovascular Heart Sounds: Present: S1 & S2. Absent: rub, click - Extremities Extremities: pulses symmetrical, No edema Peripheral Pulses: within normal limits - Abdominal General gastrointestinal: Present: soft, tender, non-distended, normal bowel sounds Localized gastrointestinal: tender: RLQ, LLQ Female genitourinary: Present: normal - Integumentary Integumentary: Present: clear, warm, dry - Musculoskeletal Musculoskeletal: gait normal, strength equal bilaterally - Psychiatric Psychiatric: appropriate mood/affect, intact judgment & insight - Neurologic Neurologic: CNII-XII intact, moves all extremities HEART Score - HEART Score Troponin: Troponin T 0.019 ng/mL (0.00-0.029) 01/04/21 12:57 Results - Labs CBC & Chem 7: 01/04/21 18:33 01/04/21 18:33 Labs: Abnormal lab results 01/04/21 01/04/21 01/04/21 Range/Units 12:57 12:57 12:57 WBC 16.5 H (4.5-11.0) K/mm3 RBC (3.65-5.03) M/mm3 Hgb 14.8 H (10.1-14.3) gm/dl Hct 45.2 H (30.3-42.9) % Plt Count 521 H (140-440) K/mm3 Seg Neutrophils # Man 10.2 H (1.8-7.7) K/mm3 Lymphocytes # (Manual) 0.0 L (1.2-5.4) K/mm3 PT 16.0 H (12.2-14.9) Sec. INR 1.22 H (0.87-1.13) D-Dimer 2114.69 H (0-234) ng/mlDDU Sodium 116 L* (137-145) mmol/L Potassium (3.6-5.0) mmol/L Chloride 78.9 L (98-107) mmol/L Carbon Dioxide 14 L (22-30) mmol/L BUN 43 H (7-17) mg/dL Creatinine 1.6 H (0.6-1.2) mg/dL Glucose 397 H (65-100) mg/dL POC Glucose (70-105) mg/dL Calcium (8.4-10.2) mg/dL AST (5-40) units/L ALT (7-56) units/L Total Creatine Kinase (30-135) units/L CK-MB (CK-2) (0.0-4.0) ng/mL NT-Pro-B Natriuret Pep (0-900) pg/mL Total Protein (6.3-8.2) g/dL Albumin (3.9-5) g/dL 01/04/21 01/04/21 01/04/21 Range/Units 12:57 17:58 18:33 WBC 11.4 H (4.5-11.0) K/mm3 RBC 3.64 L (3.65-5.03) M/mm3 Hgb (10.1-14.3) gm/dl Hct (30.3-42.9) % Plt Count (140-440) K/mm3 Seg Neutrophils # Man (1.8-7.7) K/mm3 Lymphocytes # (Manual) (1.2-5.4) K/mm3 PT (12.2-14.9) Sec. INR (0.87-1.13) D-Dimer (0-234) ng/mlDDU Sodium (137-145) mmol/L Potassium (3.6-5.0) mmol/L Chloride (98-107) mmol/L Carbon Dioxide (22-30) mmol/L BUN (7-17) mg/dL Creatinine (0.6-1.2) mg/dL Glucose (65-100) mg/dL POC Glucose 245 H (70-105) mg/dL Calcium (8.4-10.2) mg/dL AST (5-40) units/L ALT (7-56) units/L Total Creatine Kinase 160 H (30-135) units/L CK-MB (CK-2) 4.3 H (0.0-4.0) ng/mL NT-Pro-B Natriuret Pep 7015 H (0-900) pg/mL Total Protein (6.3-8.2) g/dL Albumin (3.9-5) g/dL 01/04/21 01/04/21 Range/Units 18:33 18:42 WBC (4.5-11.0) K/mm3 RBC (3.65-5.03) M/mm3 Hgb (10.1-14.3) gm/dl Hct (30.3-42.9) % Plt Count (140-440) K/mm3 Seg Neutrophils # Man (1.8-7.7) K/mm3 Lymphocytes # (Manual) (1.2-5.4) K/mm3 PT (12.2-14.9) Sec. INR (0.87-1.13) D-Dimer (0-234) ng/mlDDU Sodium 125 L D (137-145) mmol/L Potassium 3.2 L D (3.6-5.0) mmol/L Chloride 93.8 L (98-107) mmol/L Carbon Dioxide 19 L (22-30) mmol/L BUN 34 H (7-17) mg/dL Creatinine (0.6-1.2) mg/dL Glucose 205 H (65-100) mg/dL POC Glucose 209 H (70-105) mg/dL Calcium 6.4 L D (8.4-10.2) mg/dL AST 138 H (5-40) units/L ALT 311 H (7-56) units/L Total Creatine Kinase (30-135) units/L CK-MB (CK-2) (0.0-4.0) ng/mL NT-Pro-B Natriuret Pep (0-900) pg/mL Total Protein 4.7 L (6.3-8.2) g/dL Albumin 2.2 L (3.9-5) g/dL Assessment and Plan - Patient Problems (1) Bowel perforation Current Visit: Yes Status: Acute Plan to address problem: CT scan abdomen and pelvis, bowel rest, surgery team consulted, IV antibiotic therapy, pain control, supportive care. Surgical intervention as per surgical team (2) SIRS (systemic inflammatory response syndrome) Current Visit: Yes Status: Acute Plan to address problem: CBC, CMP, chest x-ray, IV antibiotic therapy, supportive care. (3) Acidosis Current Visit: Yes Status: Acute Plan to address problem: IV fluid resuscitation therapy, repeat BMP in a.m. (4) History of DVT (deep vein thrombosis) Current Visit: Yes Status: Acute Plan to address problem: Patient noncompliant with outpatient therapeutic anticoagulation. Will resume prophylactic anticoagulation postoperatively. Follow-up with surgical team in a.m. and potentially restart therapeutic anticoagulation in a.m. (5) Hyponatremia Current Visit: Yes Status: Acute Plan to address problem: IV fluid resuscitation therapy, BMP, repeat BMP in a.m. (6) DVT prophylaxis Current Visit: Yes Status: Acute Plan to address problem: SCD bilateral lower extremities while in bed, prophylactic anticoagulation (7) Advance care planning Current Visit: Yes Status: Acute Plan to address problem: Disease education conducted, care plan discussed, diagnosis discussed, prognosis discussed, patient knowledges understanding and agree with care plan, +30 minutes.
--- NOTE | 2021-01-04 19:11 | Post Anesthesia Evaluation ---
- Post Anesthesia Evaluation Patient Participated: Yes Airway Patent: Yes Stable Respiratory Function: Yes Nausea/Vomiting: No Temp > 96.8F: Yes Pain Manageable: Yes Adequeate Hydration: Yes Anesthesia Complications: No Block Receding Appropriately: Not Applicable Patient on Ventilator: No
[2021-01-04] MEDS: FLUCONAZOLE/NS 100 MG/50 ML 100 MG/50 ML BAG IV SCH (19:14)
[2021-01-04] MEDS ORDERED: MORPHINE 4 MG/1 ML INJ IV PRN (20:27)
[2021-01-04] MEDS ORDERED: MORPHINE 2 MG/1 ML INJ IV PRN (20:27)
[2021-01-04] MEDS ORDERED: HEPARIN 5,000 UNIT/1 ML VIAL SUB-Q SCH (22:00)
[2021-01-04] MEDS: POTASSIUM CHLORIDE 10 MEQ 10 MEQ/100 ML BAG IV SCH (23:24)
[2021-01-04] MEDS: INSULIN REGULAR, HUMAN 100 UNITS/1 ML SUB-Q SCH (23:25)
[2021-01-04] MEDS: MORPHINE 2 MG/1 ML INJ IV PRN (23:27)
[2021-01-05] MEDS: POTASSIUM CHLORIDE 10 MEQ 10 MEQ/100 ML BAG IV SCH ×3 (00:16→03:30)
[2021-01-05] MEDS: metroNIDAZOLE/NS 500 MG/100 ML 500 MG/100 ML BAG IV SCH ×3 (01:55→16:48)
[2021-01-05] MEDS: MORPHINE 2 MG/1 ML INJ IV PRN ×4 (05:13→20:16)
[2021-01-05] MEDS: PANTOPRAZOLE 80 MG in SODIUM CHLORIDE 0.9% 100 ML IV SCH ×2 (05:34→15:40)
[2021-01-05] MEDS: INSULIN REGULAR, HUMAN 100 UNITS/1 ML SUB-Q SCH ×3 (08:04→21:16)
[2021-01-05] MEDS ORDERED: CALCIUM CHLORIDE 1,000 MG in SODIUM CHLORIDE 0.9% 100 ML IV ONE (11:30)
[2021-01-05] MEDS ORDERED: POTASSIUM CHLORIDE 10 MEQ 10 MEQ/100 ML BAG IV SCH (11:30)
[2021-01-05 13:43] LABS: Hematocrit 39.3 % (30.3-42.9); Hemoglobin 13.1 gm/dl (10.1-14.3); Mean Corpuscular HGB Conc 33 % (30-34); Mean Corpuscular Volume 94 fl (79-97); Platelet Count 355 K/mm3 (140-440); Red Blood Count 4.18 M/mm3 (3.65-5.03); Red Cell Distribution Width 15.5 % (13.2-15.2)
[2021-01-05 14:01] LABS: BUN/Creatinine Ratio 41; Blood Urea Nitrogen 37 mg/dL (7-17); Calcium 7.6 mg/dL (8.4-10.2); Hemolysis Index 53
--- NOTE | 2021-01-05 14:10 | Progress Note ---
Assessment and Plan 80-year-old female s/p Exploratory laparotomy, peritoneal lavage, omental patch repair of perforated gastric ulcer, POD1 1. pneumoperitoneum 2/2 perforated gastric ulcer 2. sepsis 2/2 #1 Plan: 1. NPO, ok for 1/2 cup ice chips per shift only 2. IVF hydration - change to D5NS@100cc/hr 3. IV abx - levaquin, flagyl, diflucan 4. continue mckinney for strict I/Os 5. DVT ppx 6. prn pain control. NO NSAIDS 7. PPI gtt -> will switch to protonix 40mg IV BID tomorrow 8. blood and urine cx 9. path from ulcer bx pending 10. IS/pulm toilet 11. continue NGT to LIWS - SHOULD NOT BE MANIPULATED, FLUSHED, USED FOR MEDS, OR REMOVED WITHOUT ORDER FROM SURGEON. 12. PT on board - will follow recs for dc dispo 13. Kian drain - continue recording output q shift and keep to bulb suction 14. daily labs - monitor sodium Thank you. Please call with any questions or concerns. Evaluation and treatment of this patient was during the time of the national and state emergency arising from COVID19 coronavirus pandemic. Treatment and procedures performed meet the current and available best practice and guidelines for patient during the COVID pandemic. Subjective Date of service: 01/05/21 Narrative: Pt seen and examined. No acute complaints. Afebrile. Walked with PT today. Objective Vital Signs - 12hr 01/05/21 01/05/21 04:12 10:47 Temperature 98.0 F Pulse Rate 90 Respiratory 22 Rate Blood Pressure 182/86 O2 Sat by Pulse 95 96 Oximetry - General physical appearance Narrative Exam: Gen.: Awake, alert, oriented x3. No apparent distress. ENT: NGT with dark bilious drainage CV: S1, S2 present Respiratory: No audible wheezes Abdomen: Soft, ND, TTP near midline incision - appropriate. Dressings are c/d/i. KIAN drain serous. Extremities: Bilateral lower extremity mild edema : mckinney with yellow urine - Labs 01/05/21 12:45 01/05/21 12:45 Diabetes panel 01/04/21 01/05/21 Range/Units 18:33 12:45 Sodium 125 L D 126 L (137-145) mmol/L Potassium 3.2 L D 5.2 H D (3.6-5.0) mmol/L Chloride 93.8 L 93.8 L (98-107) mmol/L Carbon Dioxide 19 L 21 L (22-30) mmol/L BUN 34 H 37 H (7-17) mg/dL Creatinine 1.1 0.9 (0.6-1.2) mg/dL Glucose 205 H 145 H (65-100) mg/dL Calcium 6.4 L D 7.6 L D (8.4-10.2) mg/dL AST 138 H (5-40) units/L ALT 311 H (7-56) units/L Alkaline Phosphatase 40 (35-129) units/L Total Protein 4.7 L (6.3-8.2) g/dL Albumin 2.2 L (3.9-5) g/dL Calcium panel 01/04/21 01/05/21 Range/Units 18:33 12:45 Calcium 6.4 L D 7.6 L D (8.4-10.2) mg/dL Phosphorus 3.20 (2.5-4.5) mg/dL Albumin 2.2 L (3.9-5) g/dL Pituitary panel 01/04/21 01/05/21 Range/Units 18:33 12:45 Sodium 125 L D 126 L (137-145) mmol/L Potassium 3.2 L D 5.2 H D (3.6-5.0) mmol/L Chloride 93.8 L 93.8 L (98-107) mmol/L Carbon Dioxide 19 L 21 L (22-30) mmol/L BUN 34 H 37 H (7-17) mg/dL Creatinine 1.1 0.9 (0.6-1.2) mg/dL Glucose 205 H 145 H (65-100) mg/dL Calcium 6.4 L D 7.6 L D (8.4-10.2) mg/dL Adrenal panel 01/04/21 01/05/21 Range/Units 18:33 12:45 Sodium 125 L D 126 L (137-145) mmol/L Potassium 3.2 L D 5.2 H D (3.6-5.0) mmol/L Chloride 93.8 L 93.8 L (98-107) mmol/L Carbon Dioxide 19 L 21 L (22-30) mmol/L BUN 34 H 37 H (7-17) mg/dL Creatinine 1.1 0.9 (0.6-1.2) mg/dL Glucose 205 H 145 H (65-100) mg/dL Calcium 6.4 L D 7.6 L D (8.4-10.2) mg/dL Total Bilirubin 0.30 (0.1-1.2) mg/dL AST 138 H (5-40) units/L ALT 311 H (7-56) units/L Alkaline Phosphatase 40 (35-129) units/L Total Protein 4.7 L (6.3-8.2) g/dL Albumin 2.2 L (3.9-5) g/dL
[2021-01-05] MEDS: D5W/0.9% NACL 1,000 ML IV SCH (14:18)
--- NOTE | 2021-01-05 14:25 | Progress Note ---
Assessment and Plan #1 perforated bowel.-Status post surgical intervention. Doing well. Pain controlled. -Continue supportive care -Pain control -Correct electrolytes -Surgery following. #2 SIRS-stable was secondary to perforated viscus. #3 acute kidney injury resolved. #4 hypokalemia replace with IV potassium chloride. #5 hyponatremia 116 has corrected to 125. Continue normal saline. #6 hypocalcemia replace IV. #7 hypertension blood pressure 1 4752 no medications at this time. #8 history of diabetes sliding scale insulin will cover accordingly. Patient not eating well not addressed medical management or add medicine at this time. Subjective Date of service: 01/05/21 Principal diagnosis: Abdominal pain Interval history: 80-year-old with a history of hypertension, congestive heart failure, morbid obesity, DM, COPD noncompliant with medication such as Eliquis. Patient presented with acute episode of shortness of breath abdominal pain over the past 2 days. Work-up in ED patient found to have perforated viscus. Patient had a VQ scan which showed immediate probability. Patient was brought in for surgical intervention for correction of perforated viscus. Patient stable now asking for ice chips. Has been evaluated postoperatively by surgery. Stable. NG tube with moderate amount of brown emesis. Objective - Constitutional Vitals: Vital Signs - 12hr 01/05/21 01/05/21 04:12 10:47 Temperature 98.0 F Pulse Rate 90 Respiratory 22 Rate Blood Pressure 182/86 O2 Sat by Pulse 95 96 Oximetry General appearance: Present: no acute distress, well-nourished - EENT Eyes: PERRL, EOM intact ENT: hearing intact, clear oral mucosa Ears: bilateral: normal - Neck Neck: supple, normal ROM - Respiratory Respiratory effort: normal Respiratory: bilateral: CTA - Breasts Breasts: normal - Cardiovascular Rhythm: regular Heart Sounds: Present: S1 & S2. Absent: gallop, rub Extremities: pulses intact, No edema, normal color, Full ROM - Gastrointestinal General gastrointestinal: Present: soft, tender, non-distended, hypoactive bowel sounds, other (Only along midepigastrium. Not acute.) - Genitourinary Female genitourinary: normal - Integumentary Integumentary: clear, warm, dry - Musculoskeletal Musculoskeletal: 1, strength equal bilaterally - Neurologic Neurologic: moves all extremities - Psychiatric Psychiatric: memory intact, appropriate mood/affect, intact judgment & insight - Labs CBC & Chem 7: 01/05/21 12:45 01/05/21 12:45 Labs: Abnormal lab results 01/04/21 01/04/21 01/04/21 Range/Units 12:57 12:57 17:58 WBC (4.5-11.0) K/mm3 RBC (3.65-5.03) M/mm3 RDW (13.2-15.2) % Seg Neutrophils # Man 10.2 H (1.8-7.7) K/mm3 Lymphocytes # (Manual) 0.0 L (1.2-5.4) K/mm3 D-Dimer 2114.69 H (0-234) ng/mlDDU Sodium (137-145) mmol/L Potassium (3.6-5.0) mmol/L Chloride (98-107) mmol/L Carbon Dioxide (22-30) mmol/L BUN (7-17) mg/dL Glucose (65-100) mg/dL POC Glucose 245 H (70-105) mg/dL Calcium (8.4-10.2) mg/dL AST (5-40) units/L ALT (7-56) units/L Total Protein (6.3-8.2) g/dL Albumin (3.9-5) g/dL 01/04/21 01/04/21 01/04/21 Range/Units 18:33 18:33 18:42 WBC 11.4 H (4.5-11.0) K/mm3 RBC 3.64 L (3.65-5.03) M/mm3 RDW (13.2-15.2) % Seg Neutrophils # Man (1.8-7.7) K/mm3 Lymphocytes # (Manual) (1.2-5.4) K/mm3 D-Dimer (0-234) ng/mlDDU Sodium 125 L D (137-145) mmol/L Potassium 3.2 L D (3.6-5.0) mmol/L Chloride 93.8 L (98-107) mmol/L Carbon Dioxide 19 L (22-30) mmol/L BUN 34 H (7-17) mg/dL Glucose 205 H (65-100) mg/dL POC Glucose 209 H (70-105) mg/dL Calcium 6.4 L D (8.4-10.2) mg/dL AST 138 H (5-40) units/L ALT 311 H (7-56) units/L Total Protein 4.7 L (6.3-8.2) g/dL Albumin 2.2 L (3.9-5) g/dL 01/05/21 01/05/21 01/05/21 Range/Units 06:10 12:07 12:45 WBC 14.5 H (4.5-11.0) K/mm3 RBC (3.65-5.03) M/mm3 RDW 15.5 H (13.2-15.2) % Seg Neutrophils # Man (1.8-7.7) K/mm3 Lymphocytes # (Manual) (1.2-5.4) K/mm3 D-Dimer (0-234) ng/mlDDU Sodium (137-145) mmol/L Potassium (3.6-5.0) mmol/L Chloride (98-107) mmol/L Carbon Dioxide (22-30) mmol/L BUN (7-17) mg/dL Glucose (65-100) mg/dL POC Glucose 141 H 141 H (70-105) mg/dL Calcium (8.4-10.2) mg/dL AST (5-40) units/L ALT (7-56) units/L Total Protein (6.3-8.2) g/dL Albumin (3.9-5) g/dL 01/05/21 Range/Units 12:45 WBC (4.5-11.0) K/mm3 RBC (3.65-5.03) M/mm3 RDW (13.2-15.2) % Seg Neutrophils # Man (1.8-7.7) K/mm3 Lymphocytes # (Manual) (1.2-5.4) K/mm3 D-Dimer (0-234) ng/mlDDU Sodium 126 L (137-145) mmol/L Potassium 5.2 H D (3.6-5.0) mmol/L Chloride 93.8 L (98-107) mmol/L Carbon Dioxide 21 L (22-30) mmol/L BUN 37 H (7-17) mg/dL Glucose 145 H (65-100) mg/dL POC Glucose (70-105) mg/dL Calcium 7.6 L D (8.4-10.2) mg/dL AST (5-40) units/L ALT (7-56) units/L Total Protein (6.3-8.2) g/dL Albumin (3.9-5) g/dL HEART Score - HEART Score Troponin: Troponin T 0.019 ng/mL (0.00-0.029) 01/04/21 12:57
[2021-01-05] MEDS: FLUCONAZOLE/NS 100 MG/50 ML 100 MG/50 ML BAG IV SCH (20:20)
[2021-01-05] MEDS: HEPARIN 5,000 UNIT/1 ML VIAL SUB-Q SCH (21:07)
[2021-01-06] MEDS: D5W/0.9% NACL 1,000 ML IV SCH (04:50)
[2021-01-06] MEDS: MORPHINE 2 MG/1 ML INJ IV PRN (04:51)
[2021-01-06] MEDS: metroNIDAZOLE/NS 500 MG/100 ML 500 MG/100 ML BAG IV SCH ×4 (04:52→23:37)
[2021-01-06] MEDS: PANTOPRAZOLE 80 MG in SODIUM CHLORIDE 0.9% 100 ML IV SCH (05:42)
[2021-01-06 08:28] LABS: Basophils % (Auto) 0.3 % (0.0-1.8); Eosinophils % (Auto) 0.1 % (0.0-4.3); Hematocrit 31.7 % (30.3-42.9); Hemoglobin 10.9 gm/dl (10.1-14.3); Lymphocytes # (Auto) 0.4 K/mm3 (1.2-5.4); Lymphocytes % (Auto) 3.2 % (13.4-35.0); Mean Corpuscular HGB Conc 35 % (30-34); Mean Corpuscular Volume 91 fl (79-97); Monocytes # (Auto) 0.8 K/mm3 (0.0-0.8); Monocytes % (Auto) 6.6 % (0.0-7.3); Platelet Count 323 K/mm3 (140-440); Red Blood Count 3.49 M/mm3 (3.65-5.03); Red Cell Distribution Width 15.1 % (13.2-15.2)
[2021-01-06 08:40] LABS: Alanine Aminotransferase 285 units/L (7-56); Albumin 2.5 g/dL (3.9-5); Blood Urea Nitrogen 27 mg/dL (7-17); Calcium 7.8 mg/dL (8.4-10.2); Hemolysis Index 5
[2021-01-06 08:43] LABS: BUN/Creatinine Ratio 39
--- NOTE | 2021-01-06 09:07 | Progress Note ---
Assessment and Plan #1 perforated bowel.-Status post surgical intervention. Doing well. Pain controlled. -Continue supportive care -Pain control -Correct electrolytes -Surgery following. #2 SIRS-stable was secondary to perforated viscus. #3 acute kidney injury resolved. #4 hypokalemia replace with IV potassium chloride. #5 hyponatremia continues to improve sodium 132. Continue normal saline. #6 hypocalcemia replace IV. #7 hypertension blood pressure -slightly elevated will add as needed hydralazine. #8 history of diabetes sliding scale insulin will cover accordingly. Patient not eating well not addressed medical management or add medicine at this time. Subjective Date of service: 01/06/21 Principal diagnosis: Abdominal pain Interval history: 80-year-old with a history of hypertension, congestive heart failure, morbid obesity, DM, COPD noncompliant with medication such as Eliquis. Patient presented with acute episode of shortness of breath abdominal pain over the past 2 days. Work-up in ED patient found to have perforated viscus. Patient had a VQ scan which showed immediate probability. Patient was brought in for surgical intervention for correction of perforated viscus. Patient stable now asking for ice chips. Has been evaluated postoperatively by surgery. Stable. NG tube with moderate amount of brown emesis. 01/06/2021. Postop day 2. Patient denies pain. Only when she coughs or moves. No new concerns overnight. Hospital course unremarkable. Objective - Constitutional Vitals: Vital Signs - 12hr 01/05/21 01/05/21 01/06/21 22:00 22:46 05:33 Temperature 98.2 F 98.0 F Pulse Rate 97 H 98 H 84 Respiratory 20 20 Rate Blood Pressure 141/78 150/77 O2 Sat by Pulse 98 93 93 Oximetry General appearance: Present: no acute distress, well-nourished, other (NG tube) - EENT Eyes: PERRL, EOM intact ENT: hearing intact, clear oral mucosa Ears: bilateral: normal - Neck Neck: supple, normal ROM - Respiratory Respiratory effort: normal Respiratory: bilateral: CTA - Breasts Breasts: normal - Cardiovascular Rhythm: regular Heart Sounds: Present: S1 & S2. Absent: gallop, rub Extremities: pulses intact, No edema, normal color, Full ROM - Gastrointestinal General gastrointestinal: Present: soft, non-tender, non-distended, normal bowel sounds - Genitourinary Female genitourinary: normal - Integumentary Integumentary: clear, warm, dry - Musculoskeletal Musculoskeletal: 1, strength equal bilaterally - Neurologic Neurologic: moves all extremities - Psychiatric Psychiatric: memory intact, appropriate mood/affect, intact judgment & insight - Labs CBC & Chem 7: 01/06/21 07:45 01/06/21 07:45 Labs: Abnormal lab results 01/05/21 01/05/21 01/05/21 Range/Units 12:07 12:45 12:45 WBC 14.5 H (4.5-11.0) K/mm3 RBC (3.65-5.03) M/mm3 MCHC (30-34) % RDW 15.5 H (13.2-15.2) % Lymph % (Auto) (13.4-35.0) % Lymph # (Auto) (1.2-5.4) K/mm3 Seg Neutrophils % (40.0-70.0) % Seg Neutrophils # (1.8-7.7) K/mm3 Sodium 126 L (137-145) mmol/L Potassium 5.2 H D (3.6-5.0) mmol/L Chloride 93.8 L (98-107) mmol/L Carbon Dioxide 21 L (22-30) mmol/L BUN 37 H (7-17) mg/dL Glucose 145 H (65-100) mg/dL POC Glucose 141 H (70-105) mg/dL Calcium 7.6 L D (8.4-10.2) mg/dL AST (5-40) units/L ALT (7-56) units/L Total Protein (6.3-8.2) g/dL Albumin (3.9-5) g/dL 01/05/21 01/06/21 01/06/21 Range/Units 21:13 06:14 07:45 WBC 12.5 H (4.5-11.0) K/mm3 RBC 3.49 L (3.65-5.03) M/mm3 MCHC 35 H (30-34) % RDW (13.2-15.2) % Lymph % (Auto) 3.2 L (13.4-35.0) % Lymph # (Auto) 0.4 L (1.2-5.4) K/mm3 Seg Neutrophils % 89.8 H (40.0-70.0) % Seg Neutrophils # 11.3 H (1.8-7.7) K/mm3 Sodium (137-145) mmol/L Potassium (3.6-5.0) mmol/L Chloride (98-107) mmol/L Carbon Dioxide (22-30) mmol/L BUN (7-17) mg/dL Glucose (65-100) mg/dL POC Glucose 183 H 164 H (70-105) mg/dL Calcium (8.4-10.2) mg/dL AST (5-40) units/L ALT (7-56) units/L Total Protein (6.3-8.2) g/dL Albumin (3.9-5) g/dL 01/06/21 Range/Units 07:45 WBC (4.5-11.0) K/mm3 RBC (3.65-5.03) M/mm3 MCHC (30-34) % RDW (13.2-15.2) % Lymph % (Auto) (13.4-35.0) % Lymph # (Auto) (1.2-5.4) K/mm3 Seg Neutrophils % (40.0-70.0) % Seg Neutrophils # (1.8-7.7) K/mm3 Sodium 132 L (137-145) mmol/L Potassium (3.6-5.0) mmol/L Chloride (98-107) mmol/L Carbon Dioxide (22-30) mmol/L BUN 27 H (7-17) mg/dL Glucose 176 H (65-100) mg/dL POC Glucose (70-105) mg/dL Calcium 7.8 L (8.4-10.2) mg/dL AST 90 H (5-40) units/L ALT 285 H (7-56) units/L Total Protein 4.7 L (6.3-8.2) g/dL Albumin 2.5 L (3.9-5) g/dL HEART Score - HEART Score Troponin: Troponin T 0.019 ng/mL (0.00-0.029) 01/04/21 12:57
[2021-01-06] MEDS: HEPARIN 5,000 UNIT/1 ML VIAL SUB-Q SCH ×2 (11:19→21:11)
--- NOTE | 2021-01-06 14:48 | Progress Note ---
Assessment and Plan 80-year-old female s/p Exploratory laparotomy, peritoneal lavage, omental patch repair of perforated gastric ulcer, POD2 1. pneumoperitoneum 2/2 perforated gastric ulcer 2. sepsis 2/2 #1 Plan: 1. NPO, ok for 1/2 cup ice chips per shift only 2. IVF hydration D5NS@100cc/hr 3. IV abx - levaquin, flagyl, diflucan 4. dc mckinney after UA collected. Start purewick 5. DVT ppx 6. prn pain control. NO NSAIDS 7. protonix 40mg IV BID 8. blood and urine cx pending 9. path from ulcer bx pending 10. IS/pulm toilet 11. continue NGT to LIWS - SHOULD NOT BE MANIPULATED, FLUSHED, USED FOR MEDS, OR REMOVED WITHOUT ORDER FROM SURGEON. 12. PT on board - will follow recs for dc dispo 13. Kian drain - continue recording output q shift and keep to bulb suction 14. daily labs - monitor sodium 15. UGI in am - if negative will dc NGT Thank you. Please call with any questions or concerns. Evaluation and treatment of this patient was during the time of the national and state emergency arising from COVID19 coronavirus pandemic. Treatment and procedures performed meet the current and available best practice and guidelines for patient during the COVID pandemic. Subjective Date of service: 01/06/21 Narrative: Pt seen and examined. No acute complaints. Pain well controlled. No f/c. OOB and working with PT. Objective Vital Signs - 12hr 01/06/21 01/06/21 01/06/21 05:33 09:12 11:11 Temperature 98.0 F Pulse Rate 84 84 Respiratory 20 Rate Blood Pressure 150/77 O2 Sat by Pulse 93 94 Oximetry - General physical appearance Narrative Exam: Gen.: Awake, alert, oriented x3. No apparent distress ENT: NGT with bilious drainage. Trachea midline. No lymphadenopathy. No scleral icterus or conjunctival pallor CV: S1, S2 present Respiratory: No audible wheezes Abdomen: Soft, nondistended, mild TTP near midline incision. Dressing removed and incision is c/d/i with nikhil in place. KIAN serous. No rebound, rigidity, guarding Extremities: No clubbing, cyanosis, edema - Labs 01/06/21 07:45 01/06/21 07:45 Diabetes panel 01/06/21 Range/Units 07:45 Sodium 132 L (137-145) mmol/L Potassium 4.4 (3.6-5.0) mmol/L Chloride 101.0 (98-107) mmol/L Carbon Dioxide 23 (22-30) mmol/L BUN 27 H (7-17) mg/dL Creatinine 0.7 (0.6-1.2) mg/dL Glucose 176 H (65-100) mg/dL Calcium 7.8 L (8.4-10.2) mg/dL AST 90 H (5-40) units/L ALT 285 H (7-56) units/L Alkaline Phosphatase 45 (35-129) units/L Total Protein 4.7 L (6.3-8.2) g/dL Albumin 2.5 L (3.9-5) g/dL Calcium panel 01/06/21 Range/Units 07:45 Calcium 7.8 L (8.4-10.2) mg/dL Albumin 2.5 L (3.9-5) g/dL Pituitary panel 01/06/21 Range/Units 07:45 Sodium 132 L (137-145) mmol/L Potassium 4.4 (3.6-5.0) mmol/L Chloride 101.0 (98-107) mmol/L Carbon Dioxide 23 (22-30) mmol/L BUN 27 H (7-17) mg/dL Creatinine 0.7 (0.6-1.2) mg/dL Glucose 176 H (65-100) mg/dL Calcium 7.8 L (8.4-10.2) mg/dL Adrenal panel 01/06/21 Range/Units 07:45 Sodium 132 L (137-145) mmol/L Potassium 4.4 (3.6-5.0) mmol/L Chloride 101.0 (98-107) mmol/L Carbon Dioxide 23 (22-30) mmol/L BUN 27 H (7-17) mg/dL Creatinine 0.7 (0.6-1.2) mg/dL Glucose 176 H (65-100) mg/dL Calcium 7.8 L (8.4-10.2) mg/dL Total Bilirubin 0.40 (0.1-1.2) mg/dL AST 90 H (5-40) units/L ALT 285 H (7-56) units/L Alkaline Phosphatase 45 (35-129) units/L Total Protein 4.7 L (6.3-8.2) g/dL Albumin 2.5 L (3.9-5) g/dL
[2021-01-06 19:54] LABS: Bacteria,Urine 4+ /HPF (Negative); Bilirubin,Urine NEG (Negative); Blood,Urine MOD (Negative); Color,Urine Yellow (Yellow); Mucus,Urine 2+ /HPF; Renal Epithelial Cells,Urine <1 /LPF; Urobilinogen,Urine < 2.0 mg/dL (<2.0)
[2021-01-06] MEDS: FLUCONAZOLE/NS 100 MG/50 ML 100 MG/50 ML BAG IV SCH (20:28)
[2021-01-06] MEDS: PANTOPRAZOLE 40 MG INJ IV SCH (21:11)
[2021-01-06] MEDS: INSULIN REGULAR, HUMAN 100 UNITS/1 ML SUB-Q SCH (23:00)
[2021-01-06] MEDS: MORPHINE 4 MG/1 ML INJ IV PRN (23:42)
[2021-01-07] MEDS: hydrALAZINE 20 MG/1 ML INJ IV PRN ×2 (02:30→22:12)
[2021-01-07] MEDS: D5W/0.9% NACL 1,000 ML IV SCH ×2 (05:49→17:03)
[2021-01-07] MEDS: INSULIN REGULAR, HUMAN 100 UNITS/1 ML SUB-Q SCH ×5 (07:55→22:29)
--- NOTE | 2021-01-07 08:22 | Progress Note ---
Assessment and Plan #1 perforated bowel.-Status post surgical intervention. Exploratory laparotomy and lavage. Hospital course unremarkable. -Continue supportive care-fluids, pain control. Adequate -Pain control -Correct electrolytes -Surgery following. -Follow culture data currently no growth. #2 SIRS-stable was secondary to perforated viscus. #3 acute kidney injury resolved. #4 hypokalemia replace with IV potassium chloride. #5 hyponatremia continues to improve sodium 132. Continue normal saline. #6 hypocalcemia replace IV. #7 hypertension blood pressure -slightly elevated will add as needed hydralazine. #8 history of diabetes sliding scale insulin will cover accordingly. Patient not eating well not addressed medical management or add medicine at this time. #9 UTI should be covered with Levaquin and Flagyl. No growth culture data. #10 protein deficiency malnutrition albumin 2.5. Should improve as patient tolerates p.o. better. Subjective Date of service: 01/07/21 Principal diagnosis: Abdominal pain Interval history: 80-year-old with a history of hypertension, congestive heart failure, morbid obesity, DM, COPD noncompliant with medication such as Eliquis. Patient presented with acute episode of shortness of breath abdominal pain over the past 2 days. Work-up in ED patient found to have perforated viscus. Patient had a VQ scan which showed immediate probability. Patient was brought in for surgical intervention for correction of perforated viscus. Patient stable now asking for ice chips. Has been evaluated postoperatively by surgery. Stable. NG tube with moderate amount of brown emesis. 01/07/2021. Postop day 2. Patient denies pain. Only when she coughs or moves. No new concerns overnight. Hospital course unremarkable. 01/08/2021--postop day 3 unremarkable at present. Minimal pain. Tolerated small amount of ice chips. Otherwise hospital course unremarkable. Dark brown drainage per NG tube. Minimal drainage KIAN drain Objective - Constitutional Vitals: Vital Signs - 12hr 01/06/21 01/06/21 01/06/21 20:25 21:04 23:00 Temperature 98.1 F Pulse Rate 75 71 Respiratory 22 Rate Blood Pressure 151/75 O2 Sat by Pulse 95 96 Oximetry 01/06/21 01/07/21 01/07/21 23:01 01:36 04:35 Temperature 98.2 F 97.6 F Pulse Rate 76 115 H Respiratory 20 20 Rate Blood Pressure 179/72 147/88 O2 Sat by Pulse 96 94 94 Oximetry General appearance: Present: no acute distress, well-nourished - EENT Eyes: PERRL, EOM intact ENT: hearing intact, clear oral mucosa, other (NG tube brown drainage at low intermittent suction) Ears: bilateral: normal - Neck Neck: supple, normal ROM - Respiratory Respiratory effort: normal Respiratory: bilateral: CTA - Breasts Breasts: normal - Cardiovascular Rhythm: regular Heart Sounds: Present: S1 & S2. Absent: gallop, rub Extremities: pulses intact, No edema, normal color, Full ROM - Gastrointestinal General gastrointestinal: Present: soft, non-tender, non-distended, hypoactive bowel sounds, other (Minimal drainage KIAN drain) - Genitourinary Female genitourinary: normal - Integumentary Integumentary: clear, warm, dry - Musculoskeletal Musculoskeletal: 1, strength equal bilaterally - Neurologic Neurologic: moves all extremities - Psychiatric Psychiatric: memory intact, appropriate mood/affect, intact judgment & insight - Labs CBC & Chem 7: 01/06/21 07:45 01/06/21 07:45 Labs: Abnormal lab results 01/06/21 01/06/21 01/06/21 Range/Units 07:45 07:45 17:14 WBC 12.5 H (4.5-11.0) K/mm3 RBC 3.49 L (3.65-5.03) M/mm3 MCHC 35 H (30-34) % Lymph % (Auto) 3.2 L (13.4-35.0) % Lymph # (Auto) 0.4 L (1.2-5.4) K/mm3 Seg Neutrophils % 89.8 H (40.0-70.0) % Seg Neutrophils # 11.3 H (1.8-7.7) K/mm3 Sodium 132 L (137-145) mmol/L BUN 27 H (7-17) mg/dL Glucose 176 H (65-100) mg/dL POC Glucose 209 H (70-105) mg/dL Calcium 7.8 L (8.4-10.2) mg/dL AST 90 H (5-40) units/L ALT 285 H (7-56) units/L Total Protein 4.7 L (6.3-8.2) g/dL Albumin 2.5 L (3.9-5) g/dL Urine WBC (Auto) (0.0-6.0) /HPF 01/06/21 01/06/21 Range/Units 19:06 22:35 WBC (4.5-11.0) K/mm3 RBC (3.65-5.03) M/mm3 MCHC (30-34) % Lymph % (Auto) (13.4-35.0) % Lymph # (Auto) (1.2-5.4) K/mm3 Seg Neutrophils % (40.0-70.0) % Seg Neutrophils # (1.8-7.7) K/mm3 Sodium (137-145) mmol/L BUN (7-17) mg/dL Glucose (65-100) mg/dL POC Glucose 148 H (70-105) mg/dL Calcium (8.4-10.2) mg/dL AST (5-40) units/L ALT (7-56) units/L Total Protein (6.3-8.2) g/dL Albumin (3.9-5) g/dL Urine WBC (Auto) 39.0 H (0.0-6.0) /HPF HEART Score - HEART Score Troponin: Troponin T 0.019 ng/mL (0.00-0.029) 01/04/21 12:57
[2021-01-07] MEDS: metroNIDAZOLE/NS 500 MG/100 ML 500 MG/100 ML BAG IV SCH ×2 (08:53→17:04)
[2021-01-07] MEDS: MORPHINE 2 MG/1 ML INJ IV PRN ×3 (08:55→19:11)
[2021-01-07] MEDS: PANTOPRAZOLE 40 MG INJ IV SCH ×2 (09:00→22:13)
[2021-01-07 09:27] LABS: Alanine Aminotransferase 215 units/L (7-56); Albumin 2.8 g/dL (3.9-5); Blood Urea Nitrogen 12 mg/dL (7-17); Calcium 7.9 mg/dL (8.4-10.2); Hemolysis Index 3
[2021-01-07 09:29] LABS: BUN/Creatinine Ratio 24
--- NOTE | 2021-01-07 11:33 | Fluoroscopy Report ---
UPPER GI INDICATION / CLINICAL INFORMATION: perforated gastric ulcer s/p repair TECHNIQUE: Upper GI exam was performed with single contrast barium. COMPARISON: None available. FINDINGS: Approximately 360 mL's of Gastrografin was injected into the stomach lumen through a nasogastric tube . The stomach is well opacified without evidence of extra luminal contrast. Fluoroscopy Time: 2.3 minutes. Fluoroscopy Images: 8. IMPRESSION: 1. No evidence of postsurgical leak. Signer Name: Mitch Hendrix DO Signed: 01/07/2021 11:29 AM Workstation Name: [id number]
[2021-01-07] MEDS: POTASSIUM CHLORIDE 10 MEQ 10 MEQ/100 ML BAG IV SCH ×4 (11:35→15:10)
[2021-01-07] MEDS: HEPARIN 5,000 UNIT/1 ML VIAL SUB-Q SCH ×2 (11:37→22:12)
--- NOTE | 2021-01-07 16:02 | Progress Note ---
Assessment and Plan 80-year-old female s/p Exploratory laparotomy, peritoneal lavage, omental patch repair of perforated gastric ulcer, POD3 1. pneumoperitoneum 2/2 perforated gastric ulcer 2. sepsis 2/2 #1 GI series - negative for leak Plan: 1. NGT dced 2. CLD only 3. KIAN to bulb suction 4. OOB/ambulate - PT 5. DVT ppx -> ok to resume home AC per hospitalist service 6. PT recommending [facility], case management consulted 7. IS/pulm toilet Thank you. Please call with any questions or concerns. Evaluation and treatment of this patient was during the time of the national and state emergency arising from COVID19 coronavirus pandemic. Treatment and procedures performed meet the current and available best practice and guidelines for patient during the COVID pandemic. Subjective Date of service: 01/07/21 Narrative: Pt seen and examined. No acute complaints. Feels weak today and refused PT. Tolerated CLD. No n/v. Objective Vital Signs - 12hr 01/07/21 01/07/21 01/07/21 04:35 08:40 08:55 Temperature 97.6 F 98.1 F Pulse Rate 115 H 72 Respiratory 20 18 18 Rate Blood Pressure 147/88 144/68 Blood Pressure [Right] O2 Sat by Pulse 94 96 Oximetry 01/07/21 01/07/21 01/07/21 09:25 13:53 13:59 Temperature 97.8 F Pulse Rate 83 Respiratory 16 17 17 Rate Blood Pressure Blood Pressure 156/83 [Right] O2 Sat by Pulse 96 Oximetry 01/07/21 14:23 Temperature Pulse Rate Respiratory 16 Rate Blood Pressure Blood Pressure [Right] O2 Sat by Pulse Oximetry - General physical appearance Narrative Exam: Gen: AAox3. NAD CV: s1, s2+ resp; even and unlabored Abd: soft, NT, ND. incision c/d/i. Kian serous - Labs 01/06/21 07:45 01/07/21 08:34 Diabetes panel 01/07/21 Range/Units 08:34 Sodium 139 D (137-145) mmol/L Potassium 3.2 L D (3.6-5.0) mmol/L Chloride 100.9 (98-107) mmol/L Carbon Dioxide 31 H D (22-30) mmol/L BUN 12 (7-17) mg/dL Creatinine 0.5 L (0.6-1.2) mg/dL Glucose 200 H (65-100) mg/dL Calcium 7.9 L (8.4-10.2) mg/dL AST 43 H (5-40) units/L ALT 215 H (7-56) units/L Alkaline Phosphatase 50 (35-129) units/L Total Protein 6.0 L D (6.3-8.2) g/dL Albumin 2.8 L (3.9-5) g/dL Calcium panel 01/07/21 Range/Units 08:34 Calcium 7.9 L (8.4-10.2) mg/dL Albumin 2.8 L (3.9-5) g/dL Pituitary panel 01/07/21 Range/Units 08:34 Sodium 139 D (137-145) mmol/L Potassium 3.2 L D (3.6-5.0) mmol/L Chloride 100.9 (98-107) mmol/L Carbon Dioxide 31 H D (22-30) mmol/L BUN 12 (7-17) mg/dL Creatinine 0.5 L (0.6-1.2) mg/dL Glucose 200 H (65-100) mg/dL Calcium 7.9 L (8.4-10.2) mg/dL Adrenal panel 01/07/21 Range/Units 08:34 Sodium 139 D (137-145) mmol/L Potassium 3.2 L D (3.6-5.0) mmol/L Chloride 100.9 (98-107) mmol/L Carbon Dioxide 31 H D (22-30) mmol/L BUN 12 (7-17) mg/dL Creatinine 0.5 L (0.6-1.2) mg/dL Glucose 200 H (65-100) mg/dL Calcium 7.9 L (8.4-10.2) mg/dL Total Bilirubin 0.50 (0.1-1.2) mg/dL AST 43 H (5-40) units/L ALT 215 H (7-56) units/L Alkaline Phosphatase 50 (35-129) units/L Total Protein 6.0 L D (6.3-8.2) g/dL Albumin 2.8 L (3.9-5) g/dL
[2021-01-07] MEDS: FLUCONAZOLE/NS 100 MG/50 ML 100 MG/50 ML BAG IV SCH (20:59)
[2021-01-08] MEDS: metroNIDAZOLE/NS 500 MG/100 ML 500 MG/100 ML BAG IV SCH ×2 (00:51→10:45)
[2021-01-08] MEDS: MORPHINE 4 MG/1 ML INJ IV PRN (05:46)
--- NOTE | 2021-01-08 08:19 | Progress Note ---
Assessment and Plan #1 perforated bowel.-Status post surgical intervention. Exploratory laparotomy and lavage. Hospital course unremarkable. -Continue supportive care-fluids, pain control. Adequate -Pain control -Correct electrolytes -Surgery following. -Follow culture data currently no growth. #2 SIRS-stable was secondary to perforated viscus. #3 acute kidney injury resolved. #4 hypokalemia replace with IV potassium chloride.corrected #5 hyponatremia continues to improve sodium 132. Continue normal saline. #6 hypocalcemia replace IV. #7 hypertension blood pressure -slightly elevated will add as needed hydralazine. #8 history of diabetes sliding scale insulin will cover accordingly. Patient not eating well not addressed medical management or add medicine At this time. #9 UTI should be covered with Levaquin and Flagyl. No growth culture data. #10 protein deficiency malnutrition albumin 2.5. Should improve as patient tolerates p.o. better. Subjective Date of service: 01/08/21 Principal diagnosis: Abdominal pain Interval history: 80-year-old with a history of hypertension, congestive heart failure, morbid obesity, DM, COPD noncompliant with medication such as Eliquis. Patient presented with acute episode of shortness of breath abdominal pain over the past 2 days. Work-up in ED patient found to have perforated viscus. Patient had a VQ scan which showed immediate probability. Patient was brought in for surgical intervention for correction of perforated viscus. Patient stable now asking for ice chips. Has been evaluated postoperatively by surgery. Stable. NG tube with moderate amount of brown emesis. 01/06/2021. Postop day 2. Patient denies pain. Only when she coughs or moves. No new concerns overnight. Hospital course unremarkable. 01/07/2021--postop day 3 unremarkable at present. Minimal pain. Tolerated small amount of ice chips. Otherwise hospital course unremarkable. Dark brown drainage per NG tube. Minimal drainage KIAN drain 01/08/2021. Patient tolerating liquid diet yesterday well. Pain control. Only 1 cough. Minimal drainage. Objective - Constitutional Vitals: Vital Signs - 12hr 01/07/21 01/07/21 01/07/21 21:39 22:00 22:12 Temperature Pulse Rate Respiratory Rate Blood Pressure 167/79 O2 Sat by Pulse 97 96 Oximetry 01/08/21 01/08/21 01/08/21 00:27 03:46 08:02 Temperature 98.4 F 98.2 F Pulse Rate 79 76 Respiratory 20 20 Rate Blood Pressure 155/81 160/83 O2 Sat by Pulse 95 95 96 Oximetry General appearance: Present: no acute distress, well-nourished - EENT Eyes: PERRL, EOM intact ENT: hearing intact, clear oral mucosa Ears: bilateral: normal - Neck Neck: supple, normal ROM - Respiratory Respiratory effort: normal Respiratory: bilateral: CTA - Breasts Breasts: normal - Cardiovascular Rhythm: regular Heart Sounds: Present: S1 & S2. Absent: gallop, rub Extremities: pulses intact, No edema, normal color, Full ROM - Gastrointestinal General gastrointestinal: Present: soft, non-tender, non-distended, normal bowel sounds - Genitourinary Female genitourinary: normal - Integumentary Integumentary: clear, warm, dry - Musculoskeletal Musculoskeletal: 1, strength equal bilaterally - Neurologic Neurologic: moves all extremities - Psychiatric Psychiatric: memory intact, appropriate mood/affect, intact judgment & insight - Labs CBC & Chem 7: 01/06/21 07:45 01/08/21 12:09 Labs: Abnormal lab results 01/07/21 01/07/21 01/07/21 Range/Units 08:34 08:37 11:51 Potassium 3.2 L D (3.6-5.0) mmol/L Carbon Dioxide 31 H D (22-30) mmol/L Creatinine 0.5 L (0.6-1.2) mg/dL Glucose 200 H (65-100) mg/dL POC Glucose 193 H 168 H (70-105) mg/dL Calcium 7.9 L (8.4-10.2) mg/dL AST 43 H (5-40) units/L ALT 215 H (7-56) units/L Total Protein 6.0 L D (6.3-8.2) g/dL Albumin 2.8 L (3.9-5) g/dL 01/07/21 01/07/21 01/08/21 Range/Units 16:26 22:12 07:35 Potassium (3.6-5.0) mmol/L Carbon Dioxide (22-30) mmol/L Creatinine (0.6-1.2) mg/dL Glucose (65-100) mg/dL POC Glucose 275 H 215 H 188 H (70-105) mg/dL Calcium (8.4-10.2) mg/dL AST (5-40) units/L ALT (7-56) units/L Total Protein (6.3-8.2) g/dL Albumin (3.9-5) g/dL HEART Score - HEART Score Troponin: Troponin T 0.019 ng/mL (0.00-0.029) 01/04/21 12:57
[2021-01-08] MEDS: INSULIN REGULAR, HUMAN 100 UNITS/1 ML SUB-Q SCH ×4 (08:22→22:05)
[2021-01-08] MEDS: D5W/0.9% NACL 1,000 ML IV SCH (09:56)
[2021-01-08] MEDS: PANTOPRAZOLE 40 MG INJ IV SCH ×2 (09:57→22:04)
[2021-01-08] MEDS: HEPARIN 5,000 UNIT/1 ML VIAL SUB-Q SCH ×2 (09:57→22:04)
--- NOTE | 2021-01-08 11:30 | Progress Note ---
Assessment and Plan 80-year-old female s/p Exploratory laparotomy, peritoneal lavage, omental patch repair of perforated gastric ulcer, POD4 1. pneumoperitoneum 2/2 perforated gastric ulcer 2. sepsis 2/2 #1 GI series - negative for leak Plan: 1. adv to full liquid diet only 2. KIAN to bulb suction - likely dc in am 3. OOB/ambulate - PT 4. DVT ppx -> ok to resume home AC per hospitalist service 5. PT recommending [facility], case management consulted 6. IS/pulm toilet 7. Ok to dc tomorrow if bed arranged at [facility] Thank you. Please call with any questions or concerns. Evaluation and treatment of this patient was during the time of the national and state emergency arising from COVID19 coronavirus pandemic. Treatment and procedures performed meet the current and available best practice and guidelines for patient during the COVID pandemic. Subjective Date of service: 01/08/21 Narrative: Patient seen and examined. No acute complaints. Having bowel movements. Afe brile. Tolerating diet. Objective Vital Signs - 12hr 01/08/21 01/08/21 01/08/21 00:27 03:46 08:02 Temperature 98.4 F 98.2 F Pulse Rate 79 76 Respiratory 20 20 Rate Blood Pressure 155/81 160/83 O2 Sat by Pulse 95 95 96 Oximetry - General physical appearance Narrative Exam: Gen.: Awake, alert, oriented x3. No apparent distress ENT: Trachea midline. No lymphadenopathy. No scleral icterus or conjunctival pallor CV: S1, S2 present Respiratory: No audible wheezes Abdomen: Soft, nondistended, nontender. Midline incision clean, dry, intact. Right-sided KIAN drain serous. No rebound, rigidity, guarding Extremities: No clubbing, cyanosis, edema - Labs 01/06/21 07:45 01/07/21 08:34
[2021-01-08 13:00] LABS: BUN/Creatinine Ratio 25; Blood Urea Nitrogen 10 mg/dL (7-17); Calcium 7.9 mg/dL (8.4-10.2); Hemolysis Index 5
[2021-01-08] MEDS ORDERED: LOPERAMIDE 2 MG CAP PO PRN (18:25)
[2021-01-08] MEDS: POTASSIUM CHLORIDE 10 MEQ 10 MEQ/100 ML BAG IV SCH ×2 (20:42→21:50)
[2021-01-08] MEDS: hydrALAZINE 20 MG/1 ML INJ IV PRN (22:04)
[2021-01-08] MEDS: FLUCONAZOLE/NS 100 MG/50 ML 100 MG/50 ML BAG IV SCH (22:06)
[2021-01-09] MEDS: metroNIDAZOLE/NS 500 MG/100 ML 500 MG/100 ML BAG IV SCH ×5 (01:44→17:48)
[2021-01-09] MEDS: INSULIN REGULAR, HUMAN 100 UNITS/1 ML SUB-Q SCH ×4 (08:16→17:43)
[2021-01-09] MEDS ORDERED: POTASSIUM CHLORIDE ER 20 MEQ TAB PO NR (08:30)
[2021-01-09 08:39] LABS: Blood Urea Nitrogen 9 mg/dL (7-17); Hemolysis Index 4
--- NOTE | 2021-01-09 08:41 | Progress Note ---
Assessment and Plan #1 perforated bowel.-Status post surgical intervention. Exploratory laparotomy and lavage. Hospital course unremarkable. Awaiting placement. -Continue supportive care-fluids, pain control. Adequate -Pain control very well at this time. Tolerating full liquid. Gas no stool. -Correct electrolytes -Surgery following. -Follow culture data currently no growth. #2 SIRS-stable was secondary to perforated viscus. Has resolved. #3 acute kidney injury resolved. #4 hypokalemia replace with IV potassium chloride.corrected #5 hyponatremia continues to improve sodium 132. Continue normal saline. #6 hypocalcemia replace IV. #7 hypertension blood pressure -slightly elevated will add as needed hydralazine. #8 history of diabetes sliding scale insulin will cover accordingly. Patient not eating well not addressed medical management or add medicine At this time. #9 UTI should be covered with Levaquin and Flagyl. No growth culture data.=-Can be discharged with p.o. antibiotics. #10 protein deficiency malnutrition albumin 2.5. Should improve as patient tolerates p.o. better. Subjective Date of service: 01/09/21 Principal diagnosis: Abdominal pain Interval history: 80-year-old with a history of hypertension, congestive heart failure, morbid obesity, DM, COPD noncompliant with medication such as Eliquis. Patient presented with acute episode of shortness of breath abdominal pain over the past 2 days. Work-up in ED patient found to have perforated viscus. Patient had a VQ scan which showed immediate probability. Patient was brought in for surgical intervention for correction of perforated viscus. Patient stable now asking for ice chips. Has been evaluated postoperatively by surgery. Stable. NG tube with moderate amount of brown emesis. 01/06/2021. Postop day 2. Patient denies pain. Only when she coughs or moves. No new concerns overnight. Hospital course unremarkable. 01/07/2021--postop day 3 unremarkable at present. Minimal pain. Tolerated small amount of ice chips. Otherwise hospital course unremarkable. Dark brown drainage per NG tube. Minimal drainage KIAN drain 01/08/2021. Patient tolerating liquid diet yesterday well. Pain control. Only 1 cough. Minimal drainage. 01/09/2021. Patient tolerated full liquid diet. Pain well controlled. No stool only gas. Minimal drainage KIAN drain from yesterday awaiting placement Objective - Constitutional Vitals: Vital Signs - 12hr 01/08/21 01/08/21 01/08/21 20:42 21:39 22:00 Temperature 98.5 F Pulse Rate 85 85 Respiratory 20 Rate Blood Pressure 189/84 O2 Sat by Pulse 95 94 97 Oximetry 01/08/21 01/09/21 01/09/21 22:04 00:09 03:53 Temperature 98.6 F 98.2 F Pulse Rate 88 89 83 Respiratory 20 20 Rate Blood Pressure 189/84 162/84 158/82 O2 Sat by Pulse 94 92 Oximetry General appearance: Present: no acute distress, well-nourished - EENT Eyes: PERRL, EOM intact ENT: hearing intact, clear oral mucosa Ears: bilateral: normal - Neck Neck: supple, normal ROM - Respiratory Respiratory effort: normal Respiratory: bilateral: CTA - Breasts Breasts: normal - Cardiovascular Rhythm: regular Heart Sounds: Present: S1 & S2. Absent: gallop, rub Extremities: pulses intact, No edema, normal color, Full ROM - Gastrointestinal General gastrointestinal: Present: soft, non-tender, non-distended, normal bowel sounds - Genitourinary Female genitourinary: normal - Integumentary Integumentary: clear, warm, dry - Musculoskeletal Musculoskeletal: 1, strength equal bilaterally - Neurologic Neurologic: moves all extremities - Psychiatric Psychiatric: memory intact, appropriate mood/affect, intact judgment & insight - Labs CBC & Chem 7: 01/06/21 07:45 01/08/21 12:09 Labs: Abnormal lab results 01/08/21 01/08/21 01/08/21 Range/Units 11:53 12:09 15:47 Sodium 135 L (137-145) mmol/L Potassium 3.0 L (3.6-5.0) mmol/L Chloride 97.8 L (98-107) mmol/L Carbon Dioxide 31 H (22-30) mmol/L Creatinine 0.4 L (0.6-1.2) mg/dL Glucose 149 H (65-100) mg/dL POC Glucose 144 H 273 H (70-105) mg/dL Calcium 7.9 L (8.4-10.2) mg/dL 01/08/21 01/09/21 Range/Units 21:30 08:09 Sodium (137-145) mmol/L Potassium (3.6-5.0) mmol/L Chloride (98-107) mmol/L Carbon Dioxide (22-30) mmol/L Creatinine (0.6-1.2) mg/dL Glucose (65-100) mg/dL POC Glucose 236 H 192 H (70-105) mg/dL Calcium (8.4-10.2) mg/dL HEART Score - HEART Score Troponin: Troponin T 0.019 ng/mL (0.00-0.029) 01/04/21 12:57
[2021-01-09 08:57] LABS: BUN/Creatinine Ratio 23
[2021-01-09] MEDS: PANTOPRAZOLE 40 MG INJ IV SCH (09:37)
[2021-01-09] MEDS: HEPARIN 5,000 UNIT/1 ML VIAL SUB-Q SCH (09:37)
[2021-01-09] MEDS ORDERED: HYDROcodone/ACETAMINOPHEN 5-325 MG TAB PO PRN ×2 (11:00→17:30)
--- NOTE | 2021-01-09 13:23 | Progress Note ---
Assessment and Plan 80-year-old female s/p Exploratory laparotomy, peritoneal lavage, omental patch repair of perforated gastric ulcer, POD5 1. pneumoperitoneum 2/2 perforated gastric ulcer 2. sepsis 2/2 #1 Plan: 1. May adv to soft diet 2. KIAN discontinued 3. OOB/ambulate - PT 4. DVT ppx -> ok to resume home AC per hospitalist service 5. PT recommending [facility], case management consulted 6. IS/pulm toilet 7. prn pain control -> NO NSAIDs 8. continue PPI. Pt will need outpatient endoscopy in 6-8 weeks with GI 9. Ok to dc from surgery standpoint when bed arranged at [facility] Thank you. Please call with any questions or concerns. Evaluation and treatment of this patient was during the time of the national and state emergency arising from COVID19 coronavirus pandemic. Treatment and procedures performed meet the current and available best practice and guidelines for patient during the COVID pandemic. Subjective Date of service: 01/09/21 Narrative: Patient seen and examined. No acute complaints. States she took a few steps with physical therapy today. Afebrile. Tolerating full diet. No nausea or vomiting. Objective Vital Signs - 12hr 01/09/21 01/09/21 01/09/21 03:53 10:00 11:04 Temperature 98.2 F Pulse Rate 83 Respiratory 20 Rate Respiratory 22 Rate [Abdomen] Blood Pressure 158/82 O2 Sat by Pulse 92 95 Oximetry - General physical appearance Narrative Exam: Gen.: Awake, alert, oriented x3. No apparent distress ENT: Trachea midline. No lymphadenopathy. No scleral icterus or conjunctival pallor CV: S1, S2 present Respiratory: No audible wheezes Abdomen: Soft, nondistended, nontender. Midline incision is clean, dry, intact with nikhil in place. Right-sided KIAN drain is serous -drain taken off of bulb suction and skin suture cut, drain removed intact and a dry dressing applied. No rebound, rigidity, guarding Extremities: No clubbing, cyanosis, edema - Labs 01/06/21 07:45 01/09/21 07:54 Diabetes panel 01/09/21 Range/Units 07:54 Sodium 136 L (137-145) mmol/L Potassium 3.3 L (3.6-5.0) mmol/L Chloride 97.7 L (98-107) mmol/L Carbon Dioxide 28 (22-30) mmol/L BUN 9 (7-17) mg/dL Creatinine 0.4 L (0.6-1.2) mg/dL Glucose 201 H (65-100) mg/dL Calcium 8.0 L (8.4-10.2) mg/dL Calcium panel 01/09/21 Range/Units 07:54 Calcium 8.0 L (8.4-10.2) mg/dL Pituitary panel 01/09/21 Range/Units 07:54 Sodium 136 L (137-145) mmol/L Potassium 3.3 L (3.6-5.0) mmol/L Chloride 97.7 L (98-107) mmol/L Carbon Dioxide 28 (22-30) mmol/L BUN 9 (7-17) mg/dL Creatinine 0.4 L (0.6-1.2) mg/dL Glucose 201 H (65-100) mg/dL Calcium 8.0 L (8.4-10.2) mg/dL Adrenal panel 01/09/21 Range/Units 07:54 Sodium 136 L (137-145) mmol/L Potassium 3.3 L (3.6-5.0) mmol/L Chloride 97.7 L (98-107) mmol/L Carbon Dioxide 28 (22-30) mmol/L BUN 9 (7-17) mg/dL Creatinine 0.4 L (0.6-1.2) mg/dL Glucose 201 H (65-100) mg/dL Calcium 8.0 L (8.4-10.2) mg/dL
[2021-01-09] MEDS ORDERED: PANTOPRAZOLE 40 MG TAB PO SCH (16:30)
--- NOTE | 2021-01-09 17:08 | Discharge Summary ---
Providers - Providers Date of Admission: 01/04/21 15:39 Date of discharge: 01/09/21 Attending physician: HAYLEY MCMANUS 01/04/21 13:12 Consult to Physician [CONS] Stat Comment: Consulting Provider: DARON MARTI Physician Instructions: Reason For Exam: Free air on chest x-ray 01/04/21 18:01 Consult to Case Management [CONS] Routine Services Needed at Discharge: Planning Division Superintendent Notified:: n/a Physical Therapy Evaluation and Treat [CONS] Routine Comment: Reason For Exam: post op, frequent falls at home 01/07/21 08:42 Consult to Case Management [CONS] Routine Services Needed at Discharge: Other Notified:: n/a Additional Physician Instructions: PT recommending subacute rehab, please start process. DC pending likely next 48 hours. CM consult pending since 01/04/21 Primary care physician: SENIOR OFFICE SUPPORT ASSISTANT [facility] Hospitalization Condition: Stable Pertinent studies: Abdominal pelvis CT showed perforated bowel with pneumoperitoneum. VQ scan unremarkable low probability Echocardiogram ejection fraction 55% Upper GI series no postop care. Or leakage. Hospital course: 10-year-old with a history of hypertension, congestive heart failure, morbid obesity, DM, COPD noncompliant with medication such as Eliquis. Patient presented with acute episode of shortness of breath abdominal pain over the past 2 days. Work-up in ED patient found to have perforated viscus. Patient had a VQ scan which showed immediate probability. Patient was brought in for surgical intervention for correction of perforated viscus. Patient stable now asking for ice chips. Has been evaluated postoperatively by surgery. Stable. NG tube with moderate amount of brown emesis. Patient status post surgical correction of perforated bowel. Patient went 2 days n.p.o. and progressively tolerated p.o. clear liquid diet then full liquid diet. Patient was stabilized for transfer to [facility] for rehab. Patient had some debility given advanced age and extent of surgery. Patient been cleared to restart her anticoagulant therapy. Eliquis. Disposition: [facility] Final Discharge Diagnosis (Prints w/discharge instructions): 1. perforated bowel obstruction - Discharge Diagnoses (1) Bowel perforation Status: Acute (2) History of DVT (deep vein thrombosis) Status: Acute Comment: Chronic DVT recurrent continue Eliquis. (3) Diabetes Status: Acute Comment: Patient has not required insulin since surgery. No oral hypoglycemics in surgery. Will follow diet control. Core Measure Documentation - Palliative Care Palliative Care/ Comfort Measures: Not Applicable - Core Measures Any of the following diagnoses?: none Exam - Constitutional Vitals: Temp Pulse Resp BP Pulse Ox 98.2 F 83 22 158/82 95 01/09/21 03:53 01/09/21 03:53 01/09/21 11:04 01/09/21 03:53 01/09/21 10:00 General appearance: Present: no acute distress, well-nourished - EENT Eyes: Present: PERRL ENT: hearing intact, clear oral mucosa - Neck Neck: Present: supple, normal ROM - Respiratory Respiratory effort: normal Respiratory: bilateral: CTA - Cardiovascular Heart Sounds: Present: S1 & S2. Absent: rub, click - Extremities Extremities: pulses symmetrical, No edema Peripheral Pulses: within normal limits - Abdominal General gastrointestinal: Present: soft, non-tender, non-distended, normal bowel sounds Female genitourinary: Present: normal - Integumentary Integumentary: Present: clear, warm, dry - Musculoskeletal Musculoskeletal: gait normal, strength equal bilaterally - Psychiatric Psychiatric: appropriate mood/affect, intact judgment & insight - Neurologic Neurologic: CNII-XII intact, moves all extremities Plan Activity: up only with assistance Weight Bearing Status: Weight Bear as Tolerated Diet: diabetic Follow up with: DARON MARTI DO [Staff Physician] - 7 Days PRIMARY CARE, [Primary Care Provider] - 3-5 Days Prescriptions: Valsartan [Diovan] 80 mg PO DAILY #90 tablet HYDROcodone/APAP 5-325 [Gilbert 5-325 mg TAB] 1 each PO Q6H PRN #60 tablet PRN Reason: Pain, Moderate (4-6) Pantoprazole [Protonix TAB] 40 mg PO BIDAC #40 tablet
[2021-01-09 20:12] VITALS: BP 157/75
== END 2021-01-09 21:03 | DRG 853 ==
LOC: ED 12:17 → CC1 15:39 → ED 15:52 → 4A 17:56
PROVIDERS: ADMIT Internal Medicine; ATTEND Internal Medicine
PROC: 0DU607Z Supplement Stomach with Autologous Tissue Substitute, Open Approach (ICD-10-PCS; principal; 2021-01-04)
PROC: 0DB60ZX Excision of Stomach, Open Approach, Diagnostic (ICD-10-PCS; 2021-01-04)
PROC: 4A033R1 Measurement of Arterial Saturation, Peripheral, Percutaneous Approach (ICD-10-PCS; 2021-01-04)
DX: A41.9 Sepsis, unspecified organism (principal); K25.5 Chronic or unspecified gastric ulcer with perforation; N17.0 Acute kidney failure with tubular necrosis; E87.1 Hypo-osmolality and hyponatremia; E44.1 Mild protein-calorie malnutrition; N39.0 Urinary tract infection, site not specified; Z20.822 Contact with and (suspected) exposure to COVID-19; Z68.32 Body mass index [BMI] 32.0-32.9, adult; I11.0 Hypertensive heart disease with heart failure; I50.9 Heart failure, unspecified; Z87.891 Personal history of nicotine dependence; K21.9 Gastro-esophageal reflux disease without esophagitis; E11.9 Type 2 diabetes mellitus without complications; E87.6 Hypokalemia; E83.51 Hypocalcemia; E66.01 Morbid (severe) obesity due to excess calories
CPT/HCPCS: 36415; 71045; 74177; 74240; 78580; 80048; 80053; 81001; 82550; 82553; 82803; 82962; 83735; 83880; 84100; 84484; 85007; 85025; 85027; 85379; 85610; 85730; 86850; 86900; 86901; 87040; 87086; 88305; 88342; 93306; 94640; 94644; 94760; G0378; A9540; C9113; J0360; J1170; J1450; J1644; J1815; J1956; J2250; J2270; J2370; J2405; J2704; J2710; J3010; J3480; J7030; J7042; J7120; Q9963; Q9967; U0003